=== PATIENT | male | born 1960 | race Caucasian/White ===

== ENCOUNTER 2016-10-03 17:29 | Emergency (ER) | payer OTHER ==
--- NOTE | 2016-10-04 03:20 | ED CLINICAL REPORT ---
Clinical Report - Physicians/Mid Levels [facility] [address] [place] [address] 10/03/2016 17:30 Patient: SAMARA SALAZAR Time Seen: 1735; initial patient contact, initial documentation, patient care assumed. Arrived- In custody. In handcuffs. Police present. Historian- patient. History limited by poor cooperation, vague historian and intoxication. Physical Exam limited by intoxication. HISTORY OF PRESENT ILLNESS Chief Complaint: AGITATED, ANGRY, HOMICIDAL THOUGHTS, VIOLENT BEHAVIOR and DELUSIONAL. This started today. The patient has experienced situational problems but not exhibited a behavior change and was not found wandering. (getting into arguments with neighbors, police called x3, third visit out, pt making threats to neighbor that he would hurt them and kill their dog, police brought pt in for psych eval and medical clearance/ H [place] The history I got was similar but not identical. He has a years long dispute about his neighbors barking dog. At one point there was a restraining order against Mr. Salazar. It has . Police say there are no charges against him. The police note states, "Deputies responded...due to Lucius yelling and threatening neighbors. Upon arrival, I was determined Lucius went into into his residence.... and continued to yell arriving deputies. Lucius made many statements about government conspiracies and stated to deputies that they would just have to "shoot me in the head" and "my heads about to burst" due to Lucius's history of yelling out and making threats towards neighbors I believe Lucius is a threat to himself and others due to his mental state. End of report [place] Topher number 06/13/02 when he was legally sober I asked him what he was going to do with his neighbor if he went home He told me that he would call his hand etcher helper make a civil complaint. He told me that he was not trying to hurt his neighbor nor his neighbor's dog. I have relayed this information to the the [facility] triage person. I requested CDMHP come and evaluate this patient.). Recent alcohol consumption. Has been angry and exhibited unusual behavior. No suicidal thoughts or self-injury inflicted. The symptoms are described as moderate. No injury is present. Similar symptoms previously: Recent medical care: Not recently seen/assessed. REVIEW OF SYSTEMS The patient has had a headache. No chest pain, abdominal pain, cough or difficulty breathing. per H [place]. All systems otherwise negative, except as recorded above. PAST HISTORY See nurses notes. ( PROBLEMS: Alcoholism. Schizoaffective Disorder. Per the nurse - Pt denies this to me. Neck Pain.). SOCIAL HISTORY Unknown if ever smoked. History of drug use unknown. No alcohol use. No social support. Has place to stay. FAMILY HISTORY Unknown family medical history. ADDITIONAL NOTES The nursing notes have been reviewed with agreement regarding the chief complaint, HPI, ROS, PMH and patient medications and allergies. PHYSICAL EXAM Vital Signs: 10/03/2016 17:44 BP: 140/88. HR: 98. RR: 22. O2 saturation: 95%. Temp: 98.7 F. Have been reviewed as normal and appear to be correct. Appearance: Alert. No acute distress. Is disheveled. Patient is uncooperative. Anxious. (strong etoh breath). Eyes: Pupils equal, round and reactive to light. Neck: Normal inspection. Neck supple. CVS: Normal heart rate and rhythm. Heart sounds normal. Respiratory: Breath sounds normal. Chest nontender. Abdomen: Soft and nontender. (L inguinal hernia). Back: No tenderness. Skin: Skin warm and dry. Normal skin color. Normal skin turgor. Extremities: Extremities exhibit normal ROM. No lower extremity edema. Psych / Neuro: Speech normal. Cognition not normal. Thought content not normal. Thought process not normal. Denies suicidal thoughts. He expresses homicidal thoughts. Insight and judgement not normal. He does not appear to understand his illness or feel treatment is necessary. He seems unconcerned about his current condition. Cranial nerves normal (as tested). No motor deficit. No sensory deficit. (agitated, combative, swearing, yelling). LABS, X-RAYS, AND EKG Laboratory Tests: UA-Culture if indicated: (SONALI: 10/03/2016 18:25) ( MsgRcvd 10/03/2016 18:43) Final results Test Result Flag Units (Reference) URINE COLOR YELLOW URINE APPEARANCE CLEAR URINE GLUCOSE NEGATIVE (NEGATIVE) URINE BILIRUBIN NEGATIVE (NEGATIVE) URINE KETONE NEGATIVE (NEGATIVE) URINE SPECIFIC GRAVITY 1.010 (1.010-1.030) URINE PH 5.5 (5.0-8.0) URINE PROTEIN TRACE (NEGATIVE) URINE UROBILINOGEN 0.2 EU/dL (0.2-1.0) URINE NITRITE NEGATIVE (NEGATIVE) URINE BLOOD 2+ (NEGATIVE) URINE LEUK ESTERASE NEGATIVE (NEGATIVE) URINE RBC 1-3 rbc/hpf (0-1) URINE WBC RARE wbc/hpf (0-1) URINE EPITHELIAL CELLS RARE EPI/hpf (0-5) URINE BACTERIA NONE SEEN (NONE SEEN) URINE COMMENT CULT NOT INDICATED URINE CULTURES ARE SET-UP BASED ON THE FOLLOWING CRITERIA:POSITIVE NITRITEPOSITIVE LEUKOCYTE ESTERASEGREATER THAN 10 WHITE BLOOD CELLSMODERATE (2+) OR GREATER BACTERIA CBC w Diff: (SONALI: 10/03/2016 18:00) ( [facility] 10/03/2016 18:07) Final results Test Result Flag Units (Reference) WHITE BLOOD COUNT 9.0 K/uL (4.5-11.5) RED BLOOD COUNT 4.47 L M/uL (4.50-5.90) HEMOGLOBIN 14.4 gm/dL (13.5-17.5) HEMATOCRIT 42.9 % (41.0-53.0) MEAN CELL VOLUME 96 fL (80-100) MEAN CORPUSCULAR HGB 32 pg (26-34) MEAN CORPUSCULAR HGB CONC 34 g/dL (31-37) RED CELL DISTRIBUTION WIDTH 14.0 % (11.6-14.8) PLATELET COUNT 291 K/uL (150-400) NEUTROPHIL % 61.3 % (50-75) LYMPH % 27.4 % (25-40) MONO % 10.0 % (3-14) EOSINOPHIL % 1.1 % (0-4) BASOPHIL % 0.2 % (0-2) Ethyl Alcohol: (SONALI: 10/03/2016 22:40) ( [facility] 10/03/2016 23:12) Final results Test Result Flag Units (Reference) ETHYL ALCOHOL 122 H mg/dL (3-10) Urine Drug Screen: (SONALI: 10/03/2016 18:25) ( [facility] 10/03/2016 18:48) Final results Test Result Flag Units (Reference) AMPHETAMINE/METHAMPHETAMINE NEGATIVE (NEGATIVE) BARBITURATE NEGATIVE (NEGATIVE) BENZODIAZEPINE NEGATIVE (NEGATIVE) CANNABINOID POSITIVE H (NEGATIVE) COCAINE NEGATIVE (NEGATIVE) ECSTASY NEGATIVE (NEGATIVE) METHADONE NEGATIVE (NEGATIVE) OPIATE NEGATIVE (NEGATIVE) The urine drug screen is a qualitative screening test fordrug overdose and abuse. All screen results should beconsidered as presumptive.Drugs screened for are as follows:BenzodiazepinesCocaineAmphetamines/MetamphetaminesTHC (Tetrahydrocannabinol)OpiatesBarbituratesEcstasyMethadonePositive results are unconfirmed. For confirmation, notifythe lab for the specimen to be sent to the reference lab.All confirmations must be performed by a differentmethodology.The ingestion of natural herbal and plant productscontaining Ephedra/Ephedra metabolites can produce in urineone or more substances capable of cross reacting withamphetamine/methamphetamine immunoassays. These testsprovide a preliminary result only. A more specificalternative chemical method must be used to obtain aconfirmed analytical result. Salicylate Level: (SONALI: 10/03/2016 18:00) ( [facility] 10/03/2016 18:50) Final results Test Result Flag Units (Reference) SALICYLATE 4.3 mg/dL (2.8-20) CMP: (SONALI: 10/03/2016 18:00) ( [facility] 10/03/2016 18:21) Final results Test Result Flag Units (Reference) GLUCOSE 95 mg/dL (70-110) BUN 11 mg/dL (7-18) CREATININE 0.9 mg/dL (0.6-1.3) Estimated GFR >60 mL/min Estimated GFR- >60 mL/min Note: Persistent reduction over 3 months in eGFR<60 mL/min/1.73 m2 defines CKD. Patients with eGFR values>=60 mL/min/1.73 m2 may also have CKD if evidence ofpersistent proteinuria. Additional information may be foundat www.kidney.org. SODIUM 148 H mmol/L (136-145) POTASSIUM 3.9 mmol/L (3.5-5.1) CHLORIDE 110 H mmol/L (98-107) CARBON DIOXIDE 25 mmol/L (21-32) CALCIUM 8.6 mg/dL (8.5-10.1) TOTAL PROTEIN 7.3 g/dL (6.4-8.2) ALBUMIN 3.8 g/dL (3.3-5.0) BILIRUBIN, TOTAL 0.2 mg/dL (0.0-1.0) ALKALINE PHOSPHATASE 64 U/L (46-116) AST (SGOT) 33 U/L (15-37) ALT (SGPT) 33 U/L (12-78) ACETAMINOPHEN < 10 L ug/mL (10-30) ETHYL ALCOHOL 221 H mg/dL (3-10) . PROGRESS AND PROCEDURES Course of Care: pt placed in 4 point restraints upon arrival after police cuffs removed 1814. at bedside with staff for urine sample, pt still being completely obnoxious, uncooperative, yelling, cussing, threatening staff 20:00 10/03/16. at bedside with pt and staff, pt was shaking bed and yelling and cussing, pt wants water and urinal, given both 21:37 10/03/16. report given to dr ro who will assume when care when I leave 21:42 10/03/16. Assumed care from Gil Henriquez [facility] due to change of shift. Independent history and physical exam. Moved restraints to new different position for comfort. /Alexx Ro MD 23:40 10/03/16. Refused to talk with me. Will need CDMHP. Second ETOH is 122. 01:15 10/04/16. Breathalyzer legal. Pt states he will call his hand etcher helper not harm his neighbor or the dog. He is angry and begins to escalate, then apologizes and calms down. He states that he was fired from [employer] [facility]. To Ashley Rodgers at [facility]. Via [facility] I request a CDMHP. I have spoken with Ashley personally, she states that she will send someone to evaluate Mr. Salazar. Police state he has no criminal charges against him. 01:53 10/04/16. [facility] wants to know it he would agree to a mental health hospitalization if it were recommended. He states hospitalization is not needed and he would decline it because someone would be trying to take his properties from him if he were hospitalized. 03:17 10/04/16. The CDP finds Mr. Salazar not to be of acute risk to himself or others and not having an acute mental health process. The police stated earlier that he is not charged with a crime. Differential Diagnosis: Other possible considerations: etoh, substance abuse, hi, bipolar, psychosis. Above considerations are based on history, physical exam, reassessment and laboratory data. Differential diagnosis was discussed with patient. CLINICAL IMPRESSION HISTORY OF AGGRESSIVE VERBAL BEHAVIOR TOWARD NEIGHBOR ALCOHOL INTOXICATION. INSTRUCTIONS (PLEASE DO NOT DRINK STAY AWAY FROM THE NEIGHBOR DO USE EARPHONES ESTABLISH PRIMARY CARE). Understanding of the discharge instructions verbalized by patient. Follow-up with: [facility], Family [facility], , [address] [place] [address] (Electronically signed by Tutu Ro MD 10/04/2016 22:22)
--- NOTE | 2016-10-04 03:20 | ED CLINICAL REPORT ---
Clinical Report - Physicians/Mid Levels [facility] [address] [place] [address] 10/03/2016 17:30 Patient: SAMARA SALAZAR Time Seen: 1735; initial patient contact, initial documentation, patient care assumed. Arrived- In custody. In handcuffs. Police present. Historian- patient. History limited by poor cooperation, vague historian and intoxication. Physical Exam limited by intoxication. HISTORY OF PRESENT ILLNESS Chief Complaint: AGITATED, ANGRY, HOMICIDAL THOUGHTS, VIOLENT BEHAVIOR and DELUSIONAL. This started today. The patient has experienced situational problems but not exhibited a behavior change and was not found wandering. (getting into arguments with neighbors, police called x3, third visit out, pt making threats to neighbor that he would hurt them and kill their dog, police brought pt in for psych eval and medical clearance/ H [place] The history I got was similar but not identical. He has a years long dispute about his neighbors barking dog. At one point there was a restraining order against Mr. Salazar. It has . Police say there are no charges against him. The police note states, "Deputies responded...due to Lucius yelling and threatening neighbors. Upon arrival, I was determined Lucius went into into his residence.... and continued to yell arriving deputies. Lucius made many statements about government conspiracies and stated to deputies that they would just have to "shoot me in the head" and "my heads about to burst" due to Lucius's history of yelling out and making threats towards neighbors I believe Lucius is a threat to himself and others due to his mental state. End of report [place] Topher number 06/13/02 when he was legally sober I asked him what he was going to do with his neighbor if he went home He told me that he would call his customer care manager make a civil complaint. He told me that he was not trying to hurt his neighbor nor his neighbor's dog. I have relayed this information to the the [facility] triage person. I requested CDMHP come and evaluate this patient.). Recent alcohol consumption. Has been angry and exhibited unusual behavior. No suicidal thoughts or self-injury inflicted. The symptoms are described as moderate. No injury is present. Similar symptoms previously: Recent medical care: Not recently seen/assessed. REVIEW OF SYSTEMS The patient has had a headache. No chest pain, abdominal pain, cough or difficulty breathing. per H [place]. All systems otherwise negative, except as recorded above. PAST HISTORY See nurses notes. ( PROBLEMS: Alcoholism. Schizoaffective Disorder. Per the nurse - Pt denies this to me. Neck Pain.). SOCIAL HISTORY Unknown if ever smoked. History of drug use unknown. No alcohol use. No social support. Has place to stay. FAMILY HISTORY Unknown family medical history. ADDITIONAL NOTES The nursing notes have been reviewed with agreement regarding the chief complaint, HPI, ROS, PMH and patient medications and allergies. PHYSICAL EXAM Vital Signs: 10/03/2016 17:44 BP: 140/88. HR: 98. RR: 22. O2 saturation: 95%. Temp: 98.7 F. Have been reviewed as normal and appear to be correct. Appearance: Alert. No acute distress. Is disheveled. Patient is uncooperative. Anxious. (strong etoh breath). Eyes: Pupils equal, round and reactive to light. Neck: Normal inspection. Neck supple. CVS: Normal heart rate and rhythm. Heart sounds normal. Respiratory: Breath sounds normal. Chest nontender. Abdomen: Soft and nontender. (L inguinal hernia). Back: No tenderness. Skin: Skin warm and dry. Normal skin color. Normal skin turgor. Extremities: Extremities exhibit normal ROM. No lower extremity edema. Psych / Neuro: Speech normal. Cognition not normal. Thought content not normal. Thought process not normal. Denies suicidal thoughts. He expresses homicidal thoughts. Insight and judgement not normal. He does not appear to understand his illness or feel treatment is necessary. He seems unconcerned about his current condition. Cranial nerves normal (as tested). No motor deficit. No sensory deficit. (agitated, combative, swearing, yelling). LABS, X-RAYS, AND EKG Laboratory Tests: UA-Culture if indicated: (SONALI: 10/03/2016 18:25) ( MsgRcvd 10/03/2016 18:43) Final results Test Result Flag Units (Reference) URINE COLOR YELLOW URINE APPEARANCE CLEAR URINE GLUCOSE NEGATIVE (NEGATIVE) URINE BILIRUBIN NEGATIVE (NEGATIVE) URINE KETONE NEGATIVE (NEGATIVE) URINE SPECIFIC GRAVITY 1.010 (1.010-1.030) URINE PH 5.5 (5.0-8.0) URINE PROTEIN TRACE (NEGATIVE) URINE UROBILINOGEN 0.2 EU/dL (0.2-1.0) URINE NITRITE NEGATIVE (NEGATIVE) URINE BLOOD 2+ (NEGATIVE) URINE LEUK ESTERASE NEGATIVE (NEGATIVE) URINE RBC 1-3 rbc/hpf (0-1) URINE WBC RARE wbc/hpf (0-1) URINE EPITHELIAL CELLS RARE EPI/hpf (0-5) URINE BACTERIA NONE SEEN (NONE SEEN) URINE COMMENT CULT NOT INDICATED URINE CULTURES ARE SET-UP BASED ON THE FOLLOWING CRITERIA:POSITIVE NITRITEPOSITIVE LEUKOCYTE ESTERASEGREATER THAN 10 WHITE BLOOD CELLSMODERATE (2+) OR GREATER BACTERIA CBC w Diff: (SONALI: 10/03/2016 18:00) ( [facility] 10/03/2016 18:07) Final results Test Result Flag Units (Reference) WHITE BLOOD COUNT 9.0 K/uL (4.5-11.5) RED BLOOD COUNT 4.47 L M/uL (4.50-5.90) HEMOGLOBIN 14.4 gm/dL (13.5-17.5) HEMATOCRIT 42.9 % (41.0-53.0) MEAN CELL VOLUME 96 fL (80-100) MEAN CORPUSCULAR HGB 32 pg (26-34) MEAN CORPUSCULAR HGB CONC 34 g/dL (31-37) RED CELL DISTRIBUTION WIDTH 14.0 % (11.6-14.8) PLATELET COUNT 291 K/uL (150-400) NEUTROPHIL % 61.3 % (50-75) LYMPH % 27.4 % (25-40) MONO % 10.0 % (3-14) EOSINOPHIL % 1.1 % (0-4) BASOPHIL % 0.2 % (0-2) Ethyl Alcohol: (SONALI: 10/03/2016 22:40) ( [facility] 10/03/2016 23:12) Final results Test Result Flag Units (Reference) ETHYL ALCOHOL 122 H mg/dL (3-10) Urine Drug Screen: (SONALI: 10/03/2016 18:25) ( [facility] 10/03/2016 18:48) Final results Test Result Flag Units (Reference) AMPHETAMINE/METHAMPHETAMINE NEGATIVE (NEGATIVE) BARBITURATE NEGATIVE (NEGATIVE) BENZODIAZEPINE NEGATIVE (NEGATIVE) CANNABINOID POSITIVE H (NEGATIVE) COCAINE NEGATIVE (NEGATIVE) ECSTASY NEGATIVE (NEGATIVE) METHADONE NEGATIVE (NEGATIVE) OPIATE NEGATIVE (NEGATIVE) The urine drug screen is a qualitative screening test fordrug overdose and abuse. All screen results should beconsidered as presumptive.Drugs screened for are as follows:BenzodiazepinesCocaineAmphetamines/MetamphetaminesTHC (Tetrahydrocannabinol)OpiatesBarbituratesEcstasyMethadonePositive results are unconfirmed. For confirmation, notifythe lab for the specimen to be sent to the reference lab.All confirmations must be performed by a differentmethodology.The ingestion of natural herbal and plant productscontaining Ephedra/Ephedra metabolites can produce in urineone or more substances capable of cross reacting withamphetamine/methamphetamine immunoassays. These testsprovide a preliminary result only. A more specificalternative chemical method must be used to obtain aconfirmed analytical result. Salicylate Level: (SONALI: 10/03/2016 18:00) ( [facility] 10/03/2016 18:50) Final results Test Result Flag Units (Reference) SALICYLATE 4.3 mg/dL (2.8-20) CMP: (SONALI: 10/03/2016 18:00) ( [facility] 10/03/2016 18:21) Final results Test Result Flag Units (Reference) GLUCOSE 95 mg/dL (70-110) BUN 11 mg/dL (7-18) CREATININE 0.9 mg/dL (0.6-1.3) Estimated GFR >60 mL/min Estimated GFR- >60 mL/min Note: Persistent reduction over 3 months in eGFR<60 mL/min/1.73 m2 defines CKD. Patients with eGFR values>=60 mL/min/1.73 m2 may also have CKD if evidence ofpersistent proteinuria. Additional information may be foundat www.kidney.org. SODIUM 148 H mmol/L (136-145) POTASSIUM 3.9 mmol/L (3.5-5.1) CHLORIDE 110 H mmol/L (98-107) CARBON DIOXIDE 25 mmol/L (21-32) CALCIUM 8.6 mg/dL (8.5-10.1) TOTAL PROTEIN 7.3 g/dL (6.4-8.2) ALBUMIN 3.8 g/dL (3.3-5.0) BILIRUBIN, TOTAL 0.2 mg/dL (0.0-1.0) ALKALINE PHOSPHATASE 64 U/L (46-116) AST (SGOT) 33 U/L (15-37) ALT (SGPT) 33 U/L (12-78) ACETAMINOPHEN < 10 L ug/mL (10-30) ETHYL ALCOHOL 221 H mg/dL (3-10) . PROGRESS AND PROCEDURES Course of Care: pt placed in 4 point restraints upon arrival after police cuffs removed 1814. at bedside with staff for urine sample, pt still being completely obnoxious, uncooperative, yelling, cussing, threatening staff 20:00 10/03/16. at bedside with pt and staff, pt was shaking bed and yelling and cussing, pt wants water and urinal, given both 21:37 10/03/16. report given to dr ro who will assume when care when I leave 21:42 10/03/16. Assumed care from Gil Henriquez [facility] due to change of shift. Independent history and physical exam. Moved restraints to new different position for comfort. /Alexx Ro MD 23:40 10/03/16. Refused to talk with me. Will need CDMHP. Second ETOH is 122. 01:15 10/04/16. Breathalyzer legal. Pt states he will call his customer care manager not harm his neighbor or the dog. He is angry and begins to escalate, then apologizes and calms down. He states that he was fired from [employer]. To Ashley Rodgers at [facility]. Via [facility] I request a CDMHP. I have spoken with Ashley personally, she states that she will send someone to evaluate Mr. Salazar. Police state he has no criminal charges against him. 01:53 10/04/16. [facility] wants to know it he would agree to a mental health hospitalization if it were recommended. He states hospitalization is not needed and he would decline it because someone would be trying to take his properties from him if he were hospitalized. 03:17 10/04/16. The CDP finds Mr. Salazar not to be of acute risk to himself or others and not having an acute mental health process. The police stated earlier that he is not charged with a crime. Differential Diagnosis: Other possible considerations: etoh, substance abuse, hi, bipolar, psychosis. Above considerations are based on history, physical exam, reassessment and laboratory data. Differential diagnosis was discussed with patient. CLINICAL IMPRESSION HISTORY OF AGGRESSIVE VERBAL BEHAVIOR TOWARD NEIGHBOR ALCOHOL INTOXICATION. INSTRUCTIONS (PLEASE DO NOT DRINK STAY AWAY FROM THE NEIGHBOR DO USE EARPHONES ESTABLISH PRIMARY CARE). Understanding of the discharge instructions verbalized by patient. Follow-up with: [facility], Family [facility], , [address] [place] [address] (Electronically signed by Tutu Ro MD 10/04/2016 22:22)
--- NOTE | 2016-10-04 03:20 | ED NURSING NOTES ---
Clinical Report - Nurses [facility] [place] [address] 10/03/2016 17:30 Patient: SAMARA SALAZAR TRIAGE Triage time 1725. Acuity: LEVEL 2. Chief Complaint: ANXIETY and AGITATED, AGGRESSIVE BEHAVIOR, VIOLENT BEHAVIOR and HOMICIDAL THOUGHTS. PEGGY COMA SCORE: [place] Coma Scale: 14- eyes open spontaneously (4); best verbal response- disoriented (4); best motor response- obeys commands (6). --18:05 Shekhar Almeida R.N. 17:44 10/03/16. BP: 140/88. HR: 98. RR: 22. O2 saturation: 95%. Temp: 98.7 F. Pain level now 10/10. --18:05 Shekhar Almeida R.N. Weight: 83.9 kg. Height/Length: 73 inches. BMI: 24.4. --17:46 Shekhar Almeida R.N. Medications None. --17:47 Shekhar Almeida R.N. Allergies No Known Drug Allergy. --17:48 Shekhar Almeida R.N. History Arrived by EMS, and in police custody. Historian: patient. Accompanied by police. ( Pt was brought in by [facility] and EMS. Pt does have an invol form that was written by police.). Onset: just prior to arrival. He has had anxiety. Has been feeling agitated. ( Pt was brought in by police and EMS. Police was called to his house 3 times today. Pt was making verbal threats to his neighbors and was violent with police. Pt has been drinking all day and smells of alcohol. Police have a hx with the pt. Neighbors had a restraining order that recently . Pt came in screaming and threatening staff and police. Pt stated the police broke his neck, ripped his arms off and he was bleeding from his gut, but he is not.). 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 EMS report reviewed. See report. PAST MEDICAL HX: Anxiety. Psychiatric illness. ( Pt refuses to answer questions about his med or med hx. Pt stated he has a broken back neck and his guts are falling out.). SOCIAL HX: Alcohol use. --18:05 Shekhar Almeida R.N. PROBLEMS: Alcoholism. Schizoaffective Disorder. Neck Pain. --17:49 Shekhar Almeida R.N. Interventions ID band on patient. To treatment room. --18:05 Shekhar Almeida R.N. PHYSICAL ASSESSMENT GENERAL / NEURO / PSYCH: Alert. Appears anxious. He appears anxious and agitated, has poor eye contact and no smile response and smells of alcohol. He is hostile and combative and appears unkempt. The patient is disoriented to time. Speech within normal limits. Patient is verbally threatening. Patient smells of alcohol. RESPIRATORY: Respirations not labored. Breath sounds within normal limits. CVS: Normal heart rate and rhythm. Capillary refill less than 2 seconds. GI / : Abdomen soft and nontender. Bowel sounds within normal limits. SKIN: Skin intact. Skin is warm and dry. Skin color is within normal limits. --18:06 Shekhar Almeida R.N. NURSING PROGRESS NOTES ( pt has been placed in a gown with a warm blanket. Clothing has been removed.). --18:07 Shekhar Almeida R.N. 18 fr in/out catheterization. During procedure hand hygiene observed and sterile equipment and aseptic technique used. Return of 300 mL talia-colored urine. He tolerated procedure fair. --18:27 Shekhar Almeida R.N. ( Pt is still very agitated and verbally aggressive. He told me, "When I get out, I will beat the fuck out of you."). --18:27 Shekhar Almeida R.N. ( The left arm was moved from the top of the bed to the side of the left body. Pt stated his neck was broken and the left arm was hurting him. Restraint was replaced and checked.). --18:49 Shekhar Almeida R.N. Care transferred and report received (From Shekhar RN, assumed care of pt). --21:52 Sarika Wright R.N. ( left arm released and repositioned, pt verbally aggressive, calling one of the RNs a "whore". pt given a ice pack for back and neck, for pain control. pt A&Ox4, CONSTRUCTION RIGGER intact, NAD,). --22:21 Sarika Wright R.N. Patient ID band checked for patient name and birthdate: patient confirmed. Blood samples drawn from the left forearm by tech per protocol ; labeled in presence of the patient and sent to lab: red and green top. --22:41 Franky Ng, ER Armoring Machine Operator ( BREATHALYZER .[id number]). --01:09 Franky Ng, ER Armoring Machine Operator Reassessment after fluids administered. Overall patient status is improved. ( pt resting, NAD, still easily agitated however easily redirected pt remains with door locked for safety. will continue to monitor. pt given water). GENERAL / NEURO / PSYCH: The patient reports anger is still present but improving and currently moderate in severity (comes and goes however improving). Alert. Oriented X 4. Patient appears agitated: hyperactive body language. --02:01 Sarika Wright R.N. Overall patient status is improved. ( pt A&Ox4, agitated easily but redirected. VSS, NAD pt offered food but refused, pt accepted water. pt speaking to the [facility] worker at this time.). GENERAL / NEURO / PSYCH: Alert. Oriented X 4. Patient appears agitated. RESPIRATORY: No respiratory distress. SKIN: Skin is warm and dry. Skin color within normal limits. --02:55 Sarika Wright R.N. 02:51 10/04/16. BP: 138/82 (regular adult cuff) taken on the right arm, while lying. HR: 84 (regular and normal rate). RR: 18 (regular and unlabored). O2 saturation: 95% on room air. Temp: deferred. Pain level now: 11/15. --02:55 Sarika Wright R.N. ( pt resting, NAD, restraints fully released at 0300. pt given warm blankets and slipper socks, will continue to monitor till pt able to obtain ride home.). GENERAL / NEURO / PSYCH: Alert. Oriented X 4. Patient appears calm and cooperative. Affect appears normal. RESPIRATORY: No respiratory distress. SKIN: Skin is warm and dry. Skin color within normal limits. --03:32 Sarika Wright R.N. The patient is calm and sleeping. Overall patient status is improved. ( Sleeping soundly, no distress noted, RR even and unlabored, will continue to monitor). Side rails up. --05:19 Sarika Wright R.N. DISPOSITION / DISCHARGE No learning barriers present. Discharge instructions provided and reviewed with the patient. Patient verbalized understanding. Written instructions provided in [place]an. The patient was discharged home. He left the Emergency Department ambulatory. --05:58 Sarika Wright R.N. 05:56 10/04/16. BP: 131/82 taken on the left arm, while lying. HR: 74 (regular and normal rate). RR: 18 (regular). O2 saturation: 100% on room air. Temp: deferred. Pain level now: 08/15. --05:58 Sarika Wright R.N. Departure time: 0328. --06:03 Sarika Wright R.N. Locked/Released at 10/04/2016 6:03 by Sarika Wright R.N.
--- NOTE | 2016-10-04 03:20 | ED NURSING NOTES ---
Clinical Report - Nurses [facility] [place] [address] 10/03/2016 17:30 Patient: SAMARA SALAZAR TRIAGE Triage time 1725. Acuity: LEVEL 2. Chief Complaint: ANXIETY and AGITATED, AGGRESSIVE BEHAVIOR, VIOLENT BEHAVIOR and HOMICIDAL THOUGHTS. PEGGY COMA SCORE: [place] Coma Scale: 14- eyes open spontaneously (4); best verbal response- disoriented (4); best motor response- obeys commands (6). --18:05 Shekhar Almeida R.N. 17:44 10/03/16. BP: 140/88. HR: 98. RR: 22. O2 saturation: 95%. Temp: 98.7 F. Pain level now 10/10. --18:05 Shekhar Almeida R.N. Weight: 83.9 kg. Height/Length: 73 inches. BMI: 24.4. --17:46 Shekhar Almeida R.N. Medications None. --17:47 Shekhar Almeida R.N. Allergies No Known Drug Allergy. --17:48 Shekhar Almeida R.N. History Arrived by EMS, and in police custody. Historian: patient. Accompanied by police. ( Pt was brought in by [facility] and EMS. Pt does have an invol form that was written by police.). Onset: just prior to arrival. He has had anxiety. Has been feeling agitated. ( Pt was brought in by police and EMS. Police was called to his house 3 times today. Pt was making verbal threats to his neighbors and was violent with police. Pt has been drinking all day and smells of alcohol. Police have a hx with the pt. Neighbors had a restraining order that recently . Pt came in screaming and threatening staff and police. Pt stated the police broke his neck, ripped his arms off and he was bleeding from his gut, but he is not.). 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 EMS report reviewed. See report. PAST MEDICAL HX: Anxiety. Psychiatric illness. ( Pt refuses to answer questions about his med or med hx. Pt stated he has a broken back neck and his guts are falling out.). SOCIAL HX: Alcohol use. --18:05 Shekhar Almeida R.N. PROBLEMS: Alcoholism. Schizoaffective Disorder. Neck Pain. --17:49 Shekhar Almeida R.N. Interventions ID band on patient. To treatment room. --18:05 Shekhar Almeida R.N. PHYSICAL ASSESSMENT GENERAL / NEURO / PSYCH: Alert. Appears anxious. He appears anxious and agitated, has poor eye contact and no smile response and smells of alcohol. He is hostile and combative and appears unkempt. The patient is disoriented to time. Speech within normal limits. Patient is verbally threatening. Patient smells of alcohol. RESPIRATORY: Respirations not labored. Breath sounds within normal limits. CVS: Normal heart rate and rhythm. Capillary refill less than 2 seconds. GI / : Abdomen soft and nontender. Bowel sounds within normal limits. SKIN: Skin intact. Skin is warm and dry. Skin color is within normal limits. --18:06 Shekhar Almeida R.N. NURSING PROGRESS NOTES ( pt has been placed in a gown with a warm blanket. Clothing has been removed.). --18:07 Shekhar Almeida R.N. 18 fr in/out catheterization. During procedure hand hygiene observed and sterile equipment and aseptic technique used. Return of 300 mL talia-colored urine. He tolerated procedure fair. --18:27 Shekhar Almeida R.N. ( Pt is still very agitated and verbally aggressive. He told me, "When I get out, I will beat the fuck out of you."). --18:27 Shekhar Almeida R.N. ( The left arm was moved from the top of the bed to the side of the left body. Pt stated his neck was broken and the left arm was hurting him. Restraint was replaced and checked.). --18:49 Shekhar Almeida R.N. Care transferred and report received (From Shekhar RN, assumed care of pt). --21:52 Sarika Wright R.N. ( left arm released and repositioned, pt verbally aggressive, calling one of the RNs a "whore". pt given a ice pack for back and neck, for pain control. pt A&Ox4, CHEMICAL RECLAMATION EQUIPMENT OPERATOR intact, NAD,). --22:21 Sarika rWight R.N. Patient ID band checked for patient name and birthdate: patient confirmed. Blood samples drawn from the left forearm by tech per protocol ; labeled in presence of the patient and sent to lab: red and green top. --22:41 Franky Ng, ER Service Desk Agent ( BREATHALYZER .[id number]). --01:09 Franky Ng, ER Service Desk Agent Reassessment after fluids administered. Overall patient status is improved. ( pt resting, NAD, still easily agitated however easily redirected pt remains with door locked for safety. will continue to monitor. pt given water). GENERAL / NEURO / PSYCH: The patient reports anger is still present but improving and currently moderate in severity (comes and goes however improving). Alert. Oriented X 4. Patient appears agitated: hyperactive body language. --02:01 Sarika Wright R.N. Overall patient status is improved. ( pt A&Ox4, agitated easily but redirected. VSS, NAD pt offered food but refused, pt accepted water. pt speaking to the [facility] worker at this time.). GENERAL / NEURO / PSYCH: Alert. Oriented X 4. Patient appears agitated. RESPIRATORY: No respiratory distress. SKIN: Skin is warm and dry. Skin color within normal limits. --02:55 Sarika Wright R.N. 02:51 10/04/16. BP: 138/82 (regular adult cuff) taken on the right arm, while lying. HR: 84 (regular and normal rate). RR: 18 (regular and unlabored). O2 saturation: 95% on room air. Temp: deferred. Pain level now: 11/15. --02:55 Sarika Wright R.N. ( pt resting, NAD, restraints fully released at 0300. pt given warm blankets and slipper socks, will continue to monitor till pt able to obtain ride home.). GENERAL / NEURO / PSYCH: Alert. Oriented X 4. Patient appears calm and cooperative. Affect appears normal. RESPIRATORY: No respiratory distress. SKIN: Skin is warm and dry. Skin color within normal limits. --03:32 Sarika Wright R.N. The patient is calm and sleeping. Overall patient status is improved. ( Sleeping soundly, no distress noted, RR even and unlabored, will continue to monitor). Side rails up. --05:19 Sarika Wright R.N. DISPOSITION / DISCHARGE No learning barriers present. Discharge instructions provided and reviewed with the patient. Patient verbalized understanding. Written instructions provided in [place]. The patient was discharged home. He left the Emergency Department ambulatory. --05:58 Sarika Wright R.N. 05:56 10/04/16. BP: 131/82 taken on the left arm, while lying. HR: 74 (regular and normal rate). RR: 18 (regular). O2 saturation: 100% on room air. Temp: deferred. Pain level now: 08/15. --05:58 Sarika Wright R.N. Departure time: 0328. --06:03 Sarika Wright R.N. Locked/Released at 10/04/2016 6:03 by Sarika Wright R.N.
--- NOTE | 2016-10-04 03:20 | ED ORDER SUMMARY ---
..... Patient: SAMARA SALAZAR OrderSheet [facility] VisitID: [id number] [place] [address] 55y, M Registration Date/Time: 10/03/2016 ORDER SHEET Weight: 83.9 kg Allergies: No Known Drug Allergy GENERAL ORDERS: CBC w Diff Urgent (17:44 10/03/2016 HBivens A.R.N.P.) (Ack 17:46 IJurca ER Tech1) (19:16 CHagerty ER Culinary Internship) CMP Urgent (17:44 10/03/2016 HBivens A.R.N.P.) (Ack 17:46 IJurca ER Tech1) (19:16 CHagerty ER Culinary Internship) UA-Culture if indicated Urgent (17:44 10/03/2016 HBivens A.R.N.P.) (Ack 17:46 IJurca ER Tech1) (19:16 CHagerty ER Culinary Internship) Urine Drug Screen Urgent (17:44 10/03/2016 HBivens A.R.N.P.) (Ack 17:46 IJurca ER Tech1) (19:16 CHagerty ER Culinary Internship) Ethyl Alcohol Urgent (17:44 10/03/2016 HBivens A.R.N.P.) (Ack 17:46 IJurca ER Tech1) (19:16 CHagerty ER Culinary Internship) Acetaminophen Level Urgent (17:44 10/03/2016 HBivens A.R.N.P.) (Ack 17:46 IJurca ER Tech1) (19:16 CHagerty ER Culinary Internship) Salicylate Level Urgent (17:44 10/03/2016 HBivens A.R.N.P.) (Ack 17:46 IJurca ER Tech1) (19:16 CHagerty ER Culinary Internship) Ethyl Alcohol Urgent (21:37 10/03/2016 HBivens A.R.N.P.) (Ack 21:46 CHagerty ER Culinary Internship) (22:40 CHagerty ER Culinary Internship) MEDICATION ORDERS: IV FLUIDS: ORDER SHEET NOTES: [Electronically signed by Sarika Wright R.N. (06:03 10/04/2016)] [Electronically signed by Tutu Chanel MD (22:22 10/04/2016)] [Electronically locked/signed by Sarika Wright R.N. (06:03 10/04/2016)]
--- NOTE | 2016-10-04 03:20 | ED ORDER SUMMARY ---
..... Patient: SAMARA SALAZAR OrderSheet [facility] VisitID: [id number] [place] [address] 55y, M Registration Date/Time: 10/03/2016 ORDER SHEET Weight: 83.9 kg Allergies: No Known Drug Allergy GENERAL ORDERS: CBC w Diff Urgent (17:44 10/03/2016 HBivens A.R.N.P.) (Ack 17:46 IJurca ER Tech1) (19:16 CHagerty ER Manager Music) CMP Urgent (17:44 10/03/2016 HBivens A.R.N.P.) (Ack 17:46 IJurca ER Tech1) (19:16 CHagerty ER Manager Music) UA-Culture if indicated Urgent (17:44 10/03/2016 HBivens A.R.N.P.) (Ack 17:46 IJurca ER Tech1) (19:16 CHagerty ER Manager Music) Urine Drug Screen Urgent (17:44 10/03/2016 HBivens A.R.N.P.) (Ack 17:46 IJurca ER Tech1) (19:16 CHagerty ER Manager Music) Ethyl Alcohol Urgent (17:44 10/03/2016 HBivens A.R.N.P.) (Ack 17:46 IJurca ER Tech1) (19:16 CHagerty ER Manager Music) Acetaminophen Level Urgent (17:44 10/03/2016 HBivens A.R.N.P.) (Ack 17:46 IJurca ER Tech1) (19:16 CHagerty ER Manager Music) Salicylate Level Urgent (17:44 10/03/2016 HBivens A.R.N.P.) (Ack 17:46 IJurca ER Tech1) (19:16 CHagerty ER Manager Music) Ethyl Alcohol Urgent (21:37 10/03/2016 HBivens A.R.N.P.) (Ack 21:46 CHagerty ER Manager Music) (22:40 CHagerty ER Manager Music) MEDICATION ORDERS: IV FLUIDS: ORDER SHEET NOTES: [Electronically signed by Sarika Wright R.N. (06:03 10/04/2016)] [Electronically signed by Tutu Chanel MD (22:22 10/04/2016)] [Electronically locked/signed by Sarika Wright R.N. (06:03 10/04/2016)]
--- NOTE | 2016-10-04 22:23 | ED MAR SUMMARY ---
..... Medication Administration Record [facility] [address] [place], [place] [id number] Patient: SAMARA SALAZAR Visit ID: [id number] 55y, M Weight: 83.9 kg Height/Length: 73 in BMI: 24.4 ALLERGIES: No Known Drug Allergy
--- NOTE | 2016-10-04 22:23 | ED DISCHARGE INSTRUCTIONS ---
Patient: SAMARA SALAZAR General Instructions [facility] VisitID: [id number] [address] [place] [place] [address] 55y, M Registration Date/Time: 10/03/2016 HISTORY OF AGGRESSIVE VERBAL BEHAVIOR TOWARD NEIGHBOR ALCOHOL INTOXICATION. INSTRUCTIONS (PLEASE DO NOT DRINK STAY AWAY FROM THE NEIGHBOR DO USE EARPHONES ESTABLISH PRIMARY CARE). Understanding of the discharge instructions verbalized by patient. Follow-up with: [facility], [facility], , [address] [place] [address] (Electronically signed by Tutu Chanel MD 10/04/2016 22:22)
--- NOTE | 2016-10-04 22:23 | ED DISCHARGE INSTRUCTIONS ---
Patient: SAMARA SALAZAR General Instructions [facility] VisitID: [id number] [address] [place] [address] 55y, M Registration Date/Time: 10/03/2016 HISTORY OF AGGRESSIVE VERBAL BEHAVIOR TOWARD NEIGHBOR ALCOHOL INTOXICATION. INSTRUCTIONS (PLEASE DO NOT DRINK STAY AWAY FROM THE NEIGHBOR DO USE EARPHONES ESTABLISH PRIMARY CARE). Understanding of the discharge instructions verbalized by patient. Follow-up with: [facility], [facility], , [address] [place] [address] (Electronically signed by Tutu Chanel MD 10/04/2016 22:22)
--- NOTE | 2016-10-04 22:23 | ED MED RECONCILIATION SUMMARY ---
Patient: SAMARA SALAZAR Medication Reconciliation Report [facility] VisitID: [id number] [address] [place] [address] 55y, M Registration Date/Time: 10/03/2016 Weight: 83.9 kg Height/Length: 73 in. BMI: 24.4 ALLERGIES: No Known Drug Allergy The patient's Home Medications are listed below: NONE. The source(s) of the original Home Medication information: Not obtained. The following Medications were given to the patient in the Emergency Department: None. The following Medications were prescribed to the patient: None.
--- NOTE | 2016-10-04 22:23 | ED MED RECONCILIATION SUMMARY ---
Patient: SAMARA SALAZAR Medication Reconciliation Report [facility] VisitID: [id number] [address] [place] [address] 55y, M Registration Date/Time: 10/03/2016 Weight: 83.9 kg Height/Length: 73 in. BMI: 24.4 ALLERGIES: No Known Drug Allergy The patient's Home Medications are listed below: NONE. The source(s) of the original Home Medication information: Not obtained. The following Medications were given to the patient in the Emergency Department: None. The following Medications were prescribed to the patient: None.
--- NOTE | 2016-10-04 22:23 | ED MAR SUMMARY ---
..... Medication Administration Record [facility] [address] [place], [place] [id number] Patient: SAMARA SALAZAR Visit ID: [id number] 55y, M Weight: 83.9 kg Height/Length: 73 in BMI: 24.4 ALLERGIES: No Known Drug Allergy
== END 2016-10-04 03:28 | disposition home or self-care (01) ==
LOC: ED SRH 17:29
DX: F10.129 Alcohol abuse with intoxication, unspecified (principal); R46.89 Other symptoms and signs involving appearance and behavior
CPT/HCPCS: 90004; 90074; 90100; 92010; 92760; 92761; 92762; 92763; 92764; 92765; 92766; 92767; 92780; 95059; 97000

== ENCOUNTER 2016-10-12 12:51 | Emergency (ER) | payer OTHER ==
--- NOTE | 2016-10-12 15:06 | ED CLINICAL REPORT ---
Clinical Report - Physicians/Mid Levels [facility] [address] [place] [address] 10/12/2016 12:51 Patient: SAMARA SALAZAR Time Seen: 1300. Arrived- By private vehicle. Historian- patient. HISTORY OF PRESENT ILLNESS Location of injuries- face. Chief Complaint: DOG BITE. The injury occurred just prior to arrival. The animal reportedly appeared well and is up to date on immunizations. Occurred at home. This was an "unprovoked" attack. No skin rash or difficulty breathing. 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 REVIEW OF SYSTEMS No headache, difficulty breathing, weakness, chest pain or fever. No abdominal pain. no other areas of injury or pain. All systems otherwise negative, except as recorded above. PAST HISTORY See nurses notes. Tetanus immunization status is up-to-date. Medications: None. Allergies: NKDA. SOCIAL HISTORY Smoker- current status unknown. Alcohol use. No drug use. No recent travel. Is a local resident. ADDITIONAL NOTES The nursing notes have been reviewed. PHYSICAL EXAM Vital Signs: 10/12/2016 12:55 BP: 140/94. HR: 86. RR: 20. O2 saturation: 97%. Temp: 97.4 F. Pain level now: 10/10. Oxygen saturation normal. Appearance: Alert. Oriented X3. Patient in mild distress. (non-toxic. swearing. rude. degrading towards staff. yelling out loud stating that he does not want to be here.). Head: Head normal on inspection and non-tender. No Salazar's sign or raccoon eyes. (Large laceration from the right upper lip to the inferior cheek with several flaps. Through and through. No FB. Bleeding controlled with pressure.). Eyes: Pupillary exam: Right pupil 4mm, round and reactive to light directly and consensually and with accommodation. Left pupil: 4mm, round and reactive to light directly and consensually and with accommodation. Eyes normal inspection. No ocular injury. ENT: Ears normal on inspection. Nose normal on inspection. Mouth normal on inspection. No hemotympanum. No malocclusion. Neck: Normal inspection. No decreased ROM or muscle spasm in the neck. No pain with movement of head/neck. Neck non-tender. Painless ROM. No vertebral tenderness. CVS: Heart sounds normal. Pulses normal. Respiratory: Chest normal on inspection. Breath sounds normal. Chest nontender. Abdomen: Normal inspection. Soft and nontender. Bowel sounds normal. Back: Normal inspection. No tenderness. ROM normal. Skin: Skin intact. Skin warm and dry. Normal skin color. Normal skin turgor. Extremities: Normal inspection. Pelvis stable. Extremities atraumatic. No lower extremity edema. Neuro: Magnus Coma Scale: 15- eyes open spontaneously (4); best verbal response- oriented x 3 (5); best motor response- obeys commands (6). Oriented X 3. No motor deficit. No sensory deficit. PROGRESS AND PROCEDURES Course of Care: the patient is a 55-year-old male presenting for evaluation of dog bite to the face. Patient is being abusive verbally to staff. Patient is swearing and cussing at staff members. Patient states that he does not want to be here. Patient however was encouraged by nursing staff and myself to stay and get medical treatment for the severe lacerations to the face. After initial evaluation of the patient, I had ordered pain medication and consult with your nose and throat doctor per the patient's request of wanting someone else other than myself to sew the wound because of the location and cosmetic sensitivity issues. Informed the patient about the ear nose and throat doctor needing to attend to other duties at another health care facility and will be able to treat the patient once this is been completed. Estimated weight time was approximately an hour and a half. When the patient was updated and told that he was going to get pain medication, patient said Sarcastically, "thank you for the pain medication oh by the way, fuck you." unclear why patient is being verbally abusive to staff. We have been professional and curious with the patient throughout his stay. I am particularly upset with the way patient has been treating our staff. Patient has been disrupting other patient care while here in the emergency department as well which is similarly upsetting. A patient came out of his room and told the patient to be quiet. Security called. Patient is accompanied by an acquaintance who is also encouraging patient to stay however does realize the patient's uncooperative behavior. Patient is intoxicated however is able to make medical decisions for himself. Do not feel I can force the patient to stay against his will. patient was able to have his wound irrigated and is now currently holding the Betadine gauze and normal saline to The wound. No active bleeding. Recs and meds obtained per ENT's recs. ENT able to suture wound here in ED. No complications. Patient tolerated procedure well. Follow up per ENT. Discussed with patient his work up in the ED including diagnosis, home care, follow up, and return precautions. Infection risk explained. All questions answered. Patient expressed understanding of these instructions and was agreeable to them. Consult obtained from ENT. Disposition: Discharged. Condition: good. CLINICAL IMPRESSION Adjustment disorder with disturbance of conduct. Multiple deep lacerations to the upper lip. Complicated repair. No foreign body present. Multiple deep dog bites. acute alcohol abuse. INSTRUCTIONS Warnings: GENERAL WARNINGS: Return or contact your physician immediately if your condition worsens or changes unexpectedly, if not improving as expected, or if other problems arise. Specifically return if pain, vomiting, bleeding, breathing difficulty or fever. Your Current Medications: CONTINUE TAKING THE FOLLOWING MEDICATIONS: None*. Prescription Medications: Augmentin 875 mg: take 1 tablet orally every 12 hours for 10 days. No refill. Substitution is permissible. Oxycodone 5 mg tablets: take 1 orally every 6 hours as needed for pain. Dispense ten (10). No refill. Follow-up: Return to the emergency department as needed. Follow up with an ear, nose and throat physician (an airframe design engineer) as scheduled. Reason for referral: recheck today's concerns. Summary of care provided to patient via paper. Follow up with your doctor in three. Reason for referral: recheck today's concerns. Summary of care provided to patient via paper. Screening today revealed the patient's blood pressure to be in the normal range. The patient should follow up with a primary care provider for blood pressure management. Understanding of the discharge instructions verbalized by patient. Follow-up with: Yandel Lindsay MD, ENT, , [facility], [address] [place] [address], [facility], [id number] Follow up as scheduled. Reason for referral: recheck today's concerns. Summary of care provided to patient via paper. (Electronically signed by Nitesh Somers Dr. 10/13/2016 17:52)
--- NOTE | 2016-10-12 15:06 | ED CLINICAL REPORT ---
Clinical Report - Physicians/Mid Levels [facility] [address] [place] [address] 10/12/2016 12:51 Patient: SAMARA SALAZAR Time Seen: 1300. Arrived- By private vehicle. Historian- patient. HISTORY OF PRESENT ILLNESS Location of injuries- face. Chief Complaint: DOG BITE. The injury occurred just prior to arrival. The animal reportedly appeared well and is up to date on immunizations. Occurred at home. This was an "unprovoked" attack. No skin rash or difficulty breathing. 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 REVIEW OF SYSTEMS No headache, difficulty breathing, weakness, chest pain or fever. No abdominal pain. no other areas of injury or pain. All systems otherwise negative, except as recorded above. PAST HISTORY See nurses notes. Tetanus immunization status is up-to-date. Medications: None. Allergies: NKDA. SOCIAL HISTORY Smoker- current status unknown. Alcohol use. No drug use. No recent travel. Is a local resident. ADDITIONAL NOTES The nursing notes have been reviewed. PHYSICAL EXAM Vital Signs: 10/12/2016 12:55 BP: 140/94. HR: 86. RR: 20. O2 saturation: 97%. Temp: 97.4 F. Pain level now: 10/10. Oxygen saturation normal. Appearance: Alert. Oriented X3. Patient in mild distress. (non-toxic. swearing. rude. degrading towards staff. yelling out loud stating that he does not want to be here.). Head: Head normal on inspection and non-tender. No Salazar's sign or raccoon eyes. (Large laceration from the right upper lip to the inferior cheek with several flaps. Through and through. No FB. Bleeding controlled with pressure.). Eyes: Pupillary exam: Right pupil 4mm, round and reactive to light directly and consensually and with accommodation. Left pupil: 4mm, round and reactive to light directly and consensually and with accommodation. Eyes normal inspection. No ocular injury. ENT: Ears normal on inspection. Nose normal on inspection. Mouth normal on inspection. No hemotympanum. No malocclusion. Neck: Normal inspection. No decreased ROM or muscle spasm in the neck. No pain with movement of head/neck. Neck non-tender. Painless ROM. No vertebral tenderness. CVS: Heart sounds normal. Pulses normal. Respiratory: Chest normal on inspection. Breath sounds normal. Chest nontender. Abdomen: Normal inspection. Soft and nontender. Bowel sounds normal. Back: Normal inspection. No tenderness. ROM normal. Skin: Skin intact. Skin warm and dry. Normal skin color. Normal skin turgor. Extremities: Normal inspection. Pelvis stable. Extremities atraumatic. No lower extremity edema. Neuro: Magnus Coma Scale: 15- eyes open spontaneously (4); best verbal response- oriented x 3 (5); best motor response- obeys commands (6). Oriented X 3. No motor deficit. No sensory deficit. PROGRESS AND PROCEDURES Course of Care: the patient is a 55-year-old male presenting for evaluation of dog bite to the face. Patient is being abusive verbally to staff. Patient is swearing and cussing at staff members. Patient states that he does not want to be here. Patient however was encouraged by nursing staff and myself to stay and get medical treatment for the severe lacerations to the face. After initial evaluation of the patient, I had ordered pain medication and consult with your nose and throat doctor per the patient's request of wanting someone else other than myself to sew the wound because of the location and cosmetic sensitivity issues. Informed the patient about the ear nose and throat doctor needing to attend to other duties at another health care facility and will be able to treat the patient once this is been completed. Estimated weight time was approximately an hour and a half. When the patient was updated and told that he was going to get pain medication, patient said Sarcastically, "thank you for the pain medication oh by the way, fuck you." unclear why patient is being verbally abusive to staff. We have been professional and curious with the patient throughout his stay. I am particularly upset with the way patient has been treating our staff. Patient has been disrupting other patient care while here in the emergency department as well which is similarly upsetting. A patient came out of his room and told the patient to be quiet. Security called. Patient is accompanied by an acquaintance who is also encouraging patient to stay however does realize the patient's uncooperative behavior. Patient is intoxicated however is able to make medical decisions for himself. Do not feel I can force the patient to stay against his will. patient was able to have his wound irrigated and is now currently holding the Betadine gauze and normal saline to The wound. No active bleeding. Recs and meds obtained per ENT's recs. ENT able to suture wound here in ED. No complications. Patient tolerated procedure well. Follow up per ENT. Discussed with patient his work up in the ED including diagnosis, home care, follow up, and return precautions. Infection risk explained. All questions answered. Patient expressed understanding of these instructions and was agreeable to them. Consult obtained from ENT. Disposition: Discharged. Condition: good. CLINICAL IMPRESSION Adjustment disorder with disturbance of conduct. Multiple deep lacerations to the upper lip. Complicated repair. No foreign body present. Multiple deep dog bites. acute alcohol abuse. INSTRUCTIONS Warnings: GENERAL WARNINGS: Return or contact your physician immediately if your condition worsens or changes unexpectedly, if not improving as expected, or if other problems arise. Specifically return if pain, vomiting, bleeding, breathing difficulty or fever. Your Current Medications: CONTINUE TAKING THE FOLLOWING MEDICATIONS: None*. Prescription Medications: Augmentin 875 mg: take 1 tablet orally every 12 hours for 10 days. No refill. Substitution is permissible. Oxycodone 5 mg tablets: take 1 orally every 6 hours as needed for pain. Dispense ten (10). No refill. Follow-up: Return to the emergency department as needed. Follow up with an ear, nose and throat physician (an assistant golf professional) as scheduled. Reason for referral: recheck today's concerns. Summary of care provided to patient via paper. Follow up with your doctor in three. Reason for referral: recheck today's concerns. Summary of care provided to patient via paper. Screening today revealed the patient's blood pressure to be in the normal range. The patient should follow up with a primary care provider for blood pressure management. Understanding of the discharge instructions verbalized by patient. Follow-up with: Yandel Lindsay MD, ENT, , [facility], [address] [place] [address], [facility], [id number] Follow up as scheduled. Reason for referral: recheck today's concerns. Summary of care provided to patient via paper. (Electronically signed by Nitesh Somers Dr. 10/13/2016 17:52)
--- NOTE | 2016-10-12 15:06 | ED NURSING NOTES ---
Clinical Report - Nurses [facility] [address] [place] [address] 10/12/2016 12:51 Patient: SAMARA SALAZAR TRIAGE Triage time 12:55 Oct 12 2016. Acuity: LEVEL 3. Chief Complaint: DOG BITE. SEPSIS SCREEN: Sepsis Screen. Negative (no infection suspected/documented). --13:01 Nella Brian R.N. 12:55 10/12/16. BP: 140/94. HR: 86. RR: 20. O2 saturation: 97%. Temp: 97.4 F. Pain level now: 03/17. --13:01 Nella Brian R.N. Weight: 81.6 kg estimated. Height/Length: 70 inches Estimated. BMI: 25.8. --13:00 Nella Brian R.N. Medications None. --12:56 Nella Brina R.N. Allergies NKDA. --12:57 Nella Brian R.N. History Arrived by private vehicle. Historian: patient. Accompanied by friend. Location of injuries: upper lip. This occurred just prior to arrival. Patient was playing with the animal. He has had swelling. 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 PAST MEDICAL HX: Tetanus status: unknown. Immunizations: status is unknown. SOCIAL HX: Current every day heavy tobacco smoker (cigarette)- 1 pack per day. Heavy alcohol use. History of drug use: marijuana. No infectious disease exposure. SELF HARM ASSESSMENT: A self harm assessment was performed. The patient answered "no" to the question "Do you have thoughts of harming or killing yourself?". FALL RISK ASSESSMENT: Fall risk assessment completed. No fall risk identified. NUTRITIONAL RISK ASSESSMENT: The nutritional risk assessment revealed no deficiencies. FUNCTIONAL ASSESSMENT: Functional assessment: no impairments noted. LEARNING NEEDS ASSESSMENT: The learning needs assessment revealed no barriers. ABUSE ASSESSMENT: Abuse assessment: The patient was asked "Do you feel safe in your home?". SKIN INTEGRITY ASSESSMENT: Skin integrity risk assessment completed. No skin integrity risk identified. --13:01 Nella Brian R.N. PROBLEMS: Mental Illness. Anxiety Reaction. Schizoaffective Disorder. Neck Pain. --12:57 Nella Brian R.N. Interventions ID band on patient. --13:01 Nella Brian R.N. PHYSICAL ASSESSMENT GENERAL / NEURO / PSYCH: Alert. Oriented X 4. Appears in pain. HEENT: Mouth: swelling and deep 4.0 cm laceration (involving the vermilion border of the lip) of the upper lip. RESPIRATORY: Respirations not labored. CVS: Capillary refill less than 2 seconds. GI / : Abdomen soft. Abdominal tenderness in the left side of the abdomen. EXTREMITIES: Extremities exhibit normal ROM. Neuro-vascular status intact to the extremity. SKIN: Bleeding is present to the face. --13:04 Nella Brian R.N. NURSING PROGRESS NOTES Patient identifiers checked. Call light placed in reach. Side rails up. Bed placed in lowest position. Brakes of bed on. --13:04 Nella Brian R.N. ( pt yelling in hallway states that he wants to leave and then will say that he want a plastic surgeon. Pt intoxicated and rambling, swearing at staff. pt agreed to stay if we call someone in. pts friend is with him and assisting in keeping patient calm.). --13:16 Nella Brian R.N. 13:31 10/12/2016 Augmentin (Amoxicillin-Pot Clavulanate) PO Tablets 875 mg given. Allergies verified and confirmed 5 rights. --13:31 Nella Brian R.N. 13:32 10/12/2016 Morphine (Morphine Sulfate (PF)) IM 8 mg given. Given in the left deltoid. Allergies verified, confirmed 5 rights and sedative warning given to the patient. (pt requested entire injection into right deltoid.). --13:32 Nella Brian R.N. Wound irrigated with 500 mL sterile NS; patient tolerated procedure well. Applied dressing (applied gauze with saline and betadine to open wound.). --13:55 Nella Brian R.N. 15:20. WOUND REPAIR: Wound repair performed by plastic surgeon. Assisted by one nurse and tech. The wound is located on the mouth. The wound is irregular. Preparation: suture tray set-up and plastics tray set-up with 1% lidocaine; Betadine. Wound cleansed per physician with Betadine and irrigated per physician. Procedure: wound repaired with sutures (3packs of sutures.). Post-procedure: he was stable, no complications, bleeding controlled, neuro-vascular status intact distal to wound and wound care instructions given. Estimated blood loss: 10 mL. Total time of assist / procedure: 60 minutes. --15:36 Eva Spears R.N. DISPOSITION / DISCHARGE Condition at departure: improved. No learning barriers present. Discharge instructions provided and reviewed with the patient. Reviewed medication(s) side effects, precautions, dosing and course information. Prescription(s) given to the patient. Reviewed wound care instructions. Work note given. Patient verbalized understanding. Written instructions provided in Yoruba. The patient was discharged home and accompanied by financial administration officer. He left the Emergency Department ambulatory and via private vehicle. Wirer Maintenance driving. Medication list reviewed and validated. --15:40 Eva Spears R.N. 15:37 10/12/16. BP: 118/75. HR: 84. RR: 18. O2 saturation: 96% on room air. Pain level now: 0. 12:55 10/12/16. BP: 140/94. HR: 86. RR: 20. O2 saturation: 97%. Temp: 97.4 F. Pain level now: 03/17. --15:41 Eva Spears R.N. Locked/Released at 10/12/2016 15:44 by Eva Spears R.N.
--- NOTE | 2016-10-12 15:06 | ED ORDER SUMMARY ---
..... Patient: SAMARA SALAZAR OrderSheet [facility] VisitID: [id number] [place] [address] 55y, M Registration Date/Time: 10/12/2016 ORDER SHEET Weight: 81.6 kg (estimated) Allergies: NKDA GENERAL ORDERS: Irrigate Wounds (13:10 10/12/2016 Marielena Kingston) (Ack 13:15 TBergley) (13:54 Stanislaw R.N.) Irrigate Wounds (13:12 10/12/2016 Marielena Kingston) (Ack 13:15 TBergley) (13:54 Stanislaw R.N.) -- (betadine and NS soake to wound) (13:16 10/12/2016 Marielena Kingston) (Ack 13:20 TBergley) (13:54 Stanislaw R.N.) - (13:18 10/12/2016 Marielena Kingston) (Ack 13:20 TBergley) (13:23 TBergley) Consult - ENT (13:18 10/12/2016 Marielena Kingston) (Ack 13:20 TBergley) (13:23 TBergley) MEDICATION ORDERS: Morphine IM 8 mg (once now) (13:09 10/12/2016 Marielena Kingston) (13:32 KKnebel R.N.) Augmentin PO 875 mg (NOW) (13:12 10/12/2016 Marielena Kingston) (13:31 LUPEnebel R.N.) IV FLUIDS: ORDER SHEET NOTES: [Electronically signed by Eva Spears R.N. (15:44 10/12/2016)] [Electronically signed by Nitesh Somers Dr. (17:52 10/13/2016)] [Electronically locked/signed by Eva Spears R.N. (15:44 10/12/2016)]
--- NOTE | 2016-10-12 15:06 | ED NURSING NOTES ---
Clinical Report - Nurses [facility] [address] [place] [address] 10/12/2016 12:51 Patient: SAMARA SALAZAR TRIAGE Triage time 12:55 Oct 12 2016. Acuity: LEVEL 3. Chief Complaint: DOG BITE. SEPSIS SCREEN: Sepsis Screen. Negative (no infection suspected/documented). --13:01 Nella Brian R.N. 12:55 10/12/16. BP: 140/94. HR: 86. RR: 20. O2 saturation: 97%. Temp: 97.4 F. Pain level now: 03/17. --13:01 Nella Brian R.N. Weight: 81.6 kg estimated. Height/Length: 70 inches Estimated. BMI: 25.8. --13:00 Nella Brian R.N. Medications None. --12:56 Nella Brian R.N. Allergies NKDA. --12:57 Nella Brian R.N. History Arrived by private vehicle. Historian: patient. Accompanied by friend. Location of injuries: upper lip. This occurred just prior to arrival. Patient was playing with the animal. He has had swelling. Treatment TOOL SMITH: None. PAST MEDICAL HX: Tetanus status: unknown. Immunizations: status is unknown. SOCIAL HX: Current every day heavy tobacco smoker (cigarette)- 1 pack per day. Heavy alcohol use. History of drug use: marijuana. No infectious disease exposure. SELF HARM ASSESSMENT: A self harm assessment was performed. The patient answered "no" to the question "Do you have thoughts of harming or killing yourself?". FALL RISK ASSESSMENT: Fall risk assessment completed. No fall risk identified. NUTRITIONAL RISK ASSESSMENT: The nutritional risk assessment revealed no deficiencies. FUNCTIONAL ASSESSMENT: Functional assessment: no impairments noted. LEARNING NEEDS ASSESSMENT: The learning needs assessment revealed no barriers. ABUSE ASSESSMENT: Abuse assessment: The patient was asked "Do you feel safe in your home?". SKIN INTEGRITY ASSESSMENT: Skin integrity risk assessment completed. No skin integrity risk identified. --13:01 Nella Brian R.N. PROBLEMS: Mental Illness. Anxiety Reaction. Schizoaffective Disorder. Neck Pain. --12:57 Nella Brian R.N. Interventions ID band on patient. --13:01 Nella Brian R.N. PHYSICAL ASSESSMENT GENERAL / NEURO / PSYCH: Alert. Oriented X 4. Appears in pain. HEENT: Mouth: swelling and deep 4.0 cm laceration (involving the vermilion border of the lip) of the upper lip. RESPIRATORY: Respirations not labored. CVS: Capillary refill less than 2 seconds. GI / : Abdomen soft. Abdominal tenderness in the left side of the abdomen. EXTREMITIES: Extremities exhibit normal ROM. Neuro-vascular status intact to the extremity. SKIN: Bleeding is present to the face. --13:04 Nella Brian R.N. NURSING PROGRESS NOTES Patient identifiers checked. Call light placed in reach. Side rails up. Bed placed in lowest position. Brakes of bed on. --13:04 Nella Brian R.N. ( pt yelling in hallway states that he wants to leave and then will say that he want a plastic surgeon. Pt intoxicated and rambling, swearing at staff. pt agreed to stay if we call someone in. pts friend is with him and assisting in keeping patient calm.). --13:16 Nella Brian R.N. 13:31 10/12/2016 Augmentin (Amoxicillin-Pot Clavulanate) PO Tablets 875 mg given. Allergies verified and confirmed 5 rights. --13:31 Nella Brian R.N. 13:32 10/12/2016 Morphine (Morphine Sulfate (PF)) IM 8 mg given. Given in the left deltoid. Allergies verified, confirmed 5 rights and sedative warning given to the patient. (pt requested entire injection into right deltoid.). --13:32 Nella Brian R.N. Wound irrigated with 500 mL sterile NS; patient tolerated procedure well. Applied dressing (applied gauze with saline and betadine to open wound.). --13:55 Nella Brian R.N. 15:20. WOUND REPAIR: Wound repair performed by plastic surgeon. Assisted by one nurse and tech. The wound is located on the mouth. The wound is irregular. Preparation: suture tray set-up and plastics tray set-up with 1% lidocaine; Betadine. Wound cleansed per physician with Betadine and irrigated per physician. Procedure: wound repaired with sutures (3packs of sutures.). Post-procedure: he was stable, no complications, bleeding controlled, neuro-vascular status intact distal to wound and wound care instructions given. Estimated blood loss: 10 mL. Total time of assist / procedure: 60 minutes. --15:36 Eva Spears R.N. DISPOSITION / DISCHARGE Condition at departure: improved. No learning barriers present. Discharge instructions provided and reviewed with the patient. Reviewed medication(s) side effects, precautions, dosing and course information. Prescription(s) given to the patient. Reviewed wound care instructions. Work note given. Patient verbalized understanding. Written instructions provided in Yoruba. The patient was discharged home and accompanied by sql tech. He left the Emergency Department ambulatory and via private vehicle. Corporate Planning Manager driving. Medication list reviewed and validated. --15:40 Eva Spears R.N. 15:37 10/12/16. BP: 118/75. HR: 84. RR: 18. O2 saturation: 96% on room air. Pain level now: 0. 12:55 10/12/16. BP: 140/94. HR: 86. RR: 20. O2 saturation: 97%. Temp: 97.4 F. Pain level now: 03/17. --15:41 Eva Spears R.N. Locked/Released at 10/12/2016 15:44 by Eva Spears R.N.
--- NOTE | 2016-10-12 15:06 | ED ORDER SUMMARY ---
..... Patient: SAMARA SALAZAR OrderSheet [facility] VisitID: [id number] [place] [address] 55y, M Registration Date/Time: 10/12/2016 ORDER SHEET Weight: 81.6 kg (estimated) Allergies: NKDA GENERAL ORDERS: Irrigate Wounds (13:10 10/12/2016 Marielena Kingston) (Ack 13:15 TBergley) (13:54 Stanislaw R.N.) Irrigate Wounds (13:12 10/12/2016 Marielena Kingston) (Ack 13:15 TBergley) (13:54 Stanislaw R.N.) -- (betadine and NS soake to wound) (13:16 10/12/2016 Marielena Kingston) (Ack 13:20 TBergley) (13:54 Stanislaw R.N.) - (13:18 10/12/2016 Marielena Kingston) (Ack 13:20 TBergley) (13:23 TBergley) Consult - ENT (13:18 10/12/2016 Marielena Kingston) (Ack 13:20 TBergley) (13:23 TBergley) MEDICATION ORDERS: Morphine IM 8 mg (once now) (13:09 10/12/2016 Marielena Kingston) (13:32 KKnebel R.N.) Augmentin PO 875 mg (NOW) (13:12 10/12/2016 Marielena Kingston) (13:31 LUPEnebel R.N.) IV FLUIDS: ORDER SHEET NOTES: [Electronically signed by Eva Spears R.N. (15:44 10/12/2016)] [Electronically signed by Nitesh Somers Dr. (17:52 10/13/2016)] [Electronically locked/signed by Eva Spears R.N. (15:44 10/12/2016)]
--- NOTE | 2016-10-13 13:52 | CONSULTATION REPORT ---
DATE OF CONSULTATION: 10/12/2016 HISTORY OF PRESENT ILLNESS: The patient was seen about 3 in the afternoon, [facility] Emergency Department. A 55-year-old male who apparently suffered a severe dog bite with severe lacerations of his right upper lip, and a consultation was requested. Other history as per the emergency department physician. PHYSICAL EXAMINATION: GENERAL: Belligerent, uncooperative, intoxicated male. Presumably suffering from some sort of mental derangement, such that he could not follow orders well or cooperate well on the examination table. HEENT: Ears, nose and throat exam is remarkable for extensive lacerations through and through the upper lip, up to the level of the gingival buccal sulcus internally, extending somewhat above the base of the nose, with double laceration 2 cm apart , forming a V wedge inferiorly, and additional lip lacerations off to the right. IMPRESSION: 1. Hxobcte-owa-fsdmrud complex lacerations of the right upper lip PLAN: Repair is suggested, and when the patient briefly calmed down enough, he did give his consent.
--- NOTE | 2016-10-13 13:54 | PROCEDURE NOTE ---
DATE OF PROCEDURE: 10/12/2016 ATTENDING PHYSICIAN/PROVIDER: Yandel Lindsay MD PREPROCEDURE DIAGNOSIS: 1. Multiple complex idxannl-cft-edacsuh lacerations, right upper lip. POSTPROCEDURE DIAGNOSIS: 1. Multiple complex dwqoddt-crk-dthuwvb lacerations, right upper lip. PROCEDURE PERFORMED: 1. Operation S01.511A. 2. Operation 83232. A 7.5 cm complex lip repair; 85164, additional 4.5 cm complex laceration, lip. INDICATIONS: Multiple complex through and through lacerations, right upper lip. PROCEDURE FINDINGS: A 12 cm total lacerations, through and through, the right upper lip. DESCRIPTION OF PROCEDURE: With the patient supine on the treatment table, the area was prepped and draped in a sterile fashion; 2% Xylocaine with epinephrine was used for field block anesthesia and hemostasis. Starting with the totally transected orbicularis arcelia muscle and working towards the mucosa of the lip and vermilion with 4-0 chromic, and then the deep tissues going up and laterally on the upper lip, followed by subcutaneous closure, all with 4-0 chromic. Once this jig-saw puzzle was put together, 4-0 chromic partially-interrupted, partially running sutures were placed on the internal lip , on the vermilion, matching the vermilion mucocutaneous junction. The same suture was then utilized on the external cutaneous region, after thoroughly soaking the wounds in Betadine for sterility. Ointment applied. Procedure terminated. The patient and his friend were counseled to continue to use ointment several times a day, Bacitracin or Polysporin. They should recheck in our clinic, ENT, [facility] in [place], and about . The patient's compliance is at a suspected very low level, which is why eventually self-dissolving stitches were used throughout, since it is conceivable that he will fail his postoperative appointment.
--- NOTE | 2016-10-13 13:54 | PROCEDURE NOTE ---
DATE OF PROCEDURE: 10/12/2016 ATTENDING PHYSICIAN/PROVIDER: Yandel Lindsay MD PREPROCEDURE DIAGNOSIS: 1. Multiple complex ogbfpsb-tlb-odatdce lacerations, right upper lip. POSTPROCEDURE DIAGNOSIS: 1. Multiple complex lkysfwt-oyi-vmxzktx lacerations, right upper lip. PROCEDURE PERFORMED: 1. Operation S01.511A. 2. Operation 70497. A 7.5 cm complex lip repair; 89434, additional 4.5 cm complex laceration, lip. INDICATIONS: Multiple complex through and through lacerations, right upper lip. PROCEDURE FINDINGS: A 12 cm total lacerations, through and through, the right upper lip. DESCRIPTION OF PROCEDURE: With the patient supine on the treatment table, the area was prepped and draped in a sterile fashion; 2% Xylocaine with epinephrine was used for field block anesthesia and hemostasis. Starting with the totally transected orbicularis arcelia muscle and working towards the mucosa of the lip and vermilion with 4-0 chromic, and then the deep tissues going up and laterally on the upper lip, followed by subcutaneous closure, all with 4-0 chromic. Once this jig-saw puzzle was put together, 4-0 chromic partially-interrupted, partially running sutures were placed on the internal lip , on the vermilion, matching the vermilion mucocutaneous junction. The same suture was then utilized on the external cutaneous region, after thoroughly soaking the wounds in Betadine for sterility. Ointment applied. Procedure terminated. The patient and his friend were counseled to continue to use ointment several times a day, Bacitracin or Polysporin. They should recheck in our clinic, ENT, [facility] in [place], and about . The patient's compliance is at a suspected very low level, which is why eventually self-dissolving stitches were used throughout, since it is conceivable that he will fail his postoperative appointment.
--- NOTE | 2016-10-13 17:52 | ED MED RECONCILIATION SUMMARY ---
Patient: SAMARA SALAZAR Medication Reconciliation Report [facility] VisitID: [id number] [address] [place] [address] 55y, M Registration Date/Time: 10/12/2016 Weight: 81.6 kg Height/Length: 70 in. BMI: 25.8 ALLERGIES: NKDA The patient's Home Medications are listed below: NONE. The source(s) of the original Home Medication information: Not obtained. The following Medications were given to the patient in the Emergency Department: Augmentin [PO] PO 875 mg, administered: 10/12/2016 1:31:00 PM Morphine [IM] IM 8 mg, administered: 10/12/2016 1:32:00 PM The following Medications were prescribed to the patient: Augmentin 875 mg: take 1 tablet orally every 12 hours for 10 days. No refill. Substitution is permissible. -- Nitesh Soemrs Dr. Oxycodone 5 mg tablets: take 1 orally every 6 hours as needed for pain. Dispense ten (10). No refill. -- Nitesh Somers Dr.
--- NOTE | 2016-10-13 17:52 | ED DISCHARGE INSTRUCTIONS ---
Patient: SAMARA SALAZAR General Instructions [facility] VisitID: [id number] [address] [place] [address] 55y, M Registration Date/Time: 10/12/2016 Adjustment disorder with disturbance of conduct. Multiple deep lacerations to the upper lip. Complicated repair. No foreign body present. Multiple deep dog bites. acute alcohol abuse. INSTRUCTIONS Warnings: GENERAL WARNINGS: Return or contact your physician immediately if your condition worsens or changes unexpectedly, if not improving as expected, or if other problems arise. Specifically return if pain, vomiting, bleeding, breathing difficulty or fever. Your Current Medications: CONTINUE TAKING THE FOLLOWING MEDICATIONS: None*. Prescription Medications: Augmentin 875 mg: take 1 tablet orally every 12 hours for 10 days. No refill. Substitution is permissible. Oxycodone 5 mg tablets: take 1 orally every 6 hours as needed for pain. Dispense ten (10). No refill. Follow-up: Return to the emergency department as needed. Follow up with an ear, nose and throat physician (an chaplain resident) as scheduled. Reason for referral: recheck today's concerns. Summary of care provided to patient via paper. Follow up with your doctor in three. Reason for referral: recheck today's concerns. Summary of care provided to patient via paper. Screening today revealed the patient's blood pressure to be in the normal range. The patient should follow up with a primary care provider for blood pressure management. Understanding of the discharge instructions verbalized by patient. Follow-up with: Yandel Lindsay MD, ENT, , [facility], [address] [place] [address], [id number] Follow up as scheduled. Reason for referral: recheck today's concerns. Summary of care provided to patient via paper. ADDITIONAL INFORMATION Dog Bite If a dog has bitten you and the wound is deep enough to break the skin, an infection may occur. Therefore, you should watch for the warning signs listed below. The doctor may not close the wound completely. This is to allow fluid to drain in the event of an infection. Home Care Watch the wound for signs of infection listed below. In certain types of bites, antibiotics may be prescribed. Begin taking these as soon as possible, as directed until they are all gone. Rabies Prevention If you live in an area where rabies occurs in wild animals, the rabies virus can be passed to cats and dogs. An infected animal can pass the rabies virus to you during a bite. If ahealthy-looking pet dog has bitten you, it should be kept in a secure area for the next 10 days to watch for signs of illness. If the pet power plant operators supervisor wont cooperate with you, contact the [facility] animal control department (or local law enforcement). If the animal becomes ill or dies days, contact your animal control department at once. The animal must be tested for rabies. If the animal stays healthy for the next 10 days, then there is no danger of rabies in the dog or you. Pets fully vaccinated against rabies (2 shots) are at very low risk for the infection. However, because human rabies is almost always fatal, any biting dog should be kept in confinement for 10 days as an extra precaution. If a stray dog bit you, contact the animal control department. They can provide information on capture, quarantine, and animal rabies testing. If you are unable to locate the animal that bit you in the next 2days, and if rabies exists in your region, you must be evaluated for the rabies vaccine series. Contact your doctor or return here promptly. All animal bites should be reported to the [facility] animal control department. If you were not given a form to fill out, you can report it yourself by calling. Follow Up with your doctor as advised. Most skin wounds heal within 10 days. However, an infection may occur even with proper treatment. Check your woundevery 6 hoursfor 2 days, then at least once a day for the next two days for the signs of infection listed below. Get Prompt Medical Attention if any of the following occur: Signs of infection: Spreading redness Increased pain or swelling Fever of 100.4F (38C) or higher, or as directed by your healthcare provider Colored fluid or pus draining from the wound Headache, confusion, strange behavior, or a seizure (signs of a rabies infection) Laceration, Face (Suture Or Tape) Alaceration is a cut through the skin. This will require stitches if it is deep. Minor cuts may be treated with surgical tape. Home care The following guidelines will help you care for your laceration at home: If a bandage was applied and it becomes wet or dirty, replace it. Otherwise, leave it in place for the first 24 hours, then change it once a day or as directed. If sutures were used, clean the wound daily: After removing the bandage, wash the area with soap and water. Use a wet cotton swab to loosen and remove any blood or crust that forms. After cleaning, keep the wound clean and dry. Talk with your doctor before applying any antibiotic ointment to the wound. Reapply a fresh bandage. You may remove the bandage to shower as usual after the first 24 hours, but do not soak the area in water (no swimming) until the sutures are removed. If surgical tape was used, keep the area clean and dry. If it becomes wet, blot it dry with a towel. The doctor may prescribe an antibiotic cream or ointment to prevent infection. Do not stop taking this medication until you have have finished the prescribed course or the doctor tells you to stop. The doctor may also prescribe medications for pain. Follow the doctor's instructions for taking these medications.If you have chronic liver or kidney disease or ever had a stomach ulcer or GI bleeding, talk with your doctor before using these medicines. Follow-up care Follow up with your health care provider. Most facial cuts heal in five days with no problem. However, even with proper treatment, a wound infection sometimes occurs. Therefore, check the wound daily for the warning signs listed below. Stitches should not be left in the face for more thanfivedays; otherwise, permanent stitch rangel may form. If surgical tape closures were used, you may remove them yourself afterfivedays, if they have not fallen off by then. When to seek medical care Get prompt medical attention if any of these occur: Increasing pain in the wound Redness, swelling, or pus coming from the wound If sutures come apart or fall out before 5 days If the surgical tape closures fall off before 5 days, or the wound edges reopen Fever of 100.4F (38C) or higher, or as directed by your health care provider Bleeding not controlled by direct pressure Adjustment Disorder An adjustment disorder is a condition that results from having a hard time coping with the normal stresses of life. You may feel you have too much to do and cant get it all done. These feelings may be triggered by divorce, job loss, someone you know dying, or by a positive event like getting a new job or getting . These feelings may interfere with your relationships at home and at work. With this condition, it is common to feel sad, guilty, hopeless and restless. These feelings may continue for weeks or months. It can be helpful to identify what is causing the additional stress and takes steps to get extra support. If new stressful events do not occur, it is likely that you will start feeling better within six months. Home Care: If you have been given a prescription for medicine, take it as directed. It helps to talk about your feelings and thoughts with family or friends that understand and support you. Follow Up with your doctor or therapist as advised by our staff. Let them know if this condition lasts more than six months without sign of improvement. For more information, contact the [employer] [place] [employer] at 359-433-3399 or visit www.yair.org. Get Prompt Medical Attention if any of the following occur: Worsening depression or anxiety Feeling out of control Thoughts of harming yourself or another Being unable to care for yourself Amoxicillin Trihydrate, Clavulanate Potassium Oral tablet What is this medicine? AMOXICILLIN; CLAVULANIC ACID (a mox i CHARLEY in; IVAN lozano ic id) is a penicillin antibiotic. It is used to treat certain kinds of bacterial infections. It will not work for colds, flu, or other viral infections. How should I use this medicine? Take this medicine by mouth with a full glass of water. Follow the directions on the prescription label. Take at the start of a meal. Do not crush or chew. If the tablet has a score line, you may cut it in half at the score line for easier swallowing. Take your medicine at regular intervals. Do not take your medicine more often than directed. Take all of your medicine as directed even if you think you are better. Do not skip doses or stop your medicine early. Talk to your merchandise clerk regarding the use of this medicine in children. Special care may be needed. What side effects may I notice from receiving this medicine? Side effects that you should report to your doctor or health hospice care transitions coordinator as soon as possible: allergic reactions like skin rash, itching or hives, swelling of the face, lips, or tongue breathing problems dark urine fever or chills, sore throat redness, blistering, peeling or loosening of the skin, including inside the mouth seizures trouble passing urine or change in the amount of urine unusual bleeding, bruising unusually weak or tired white patches or sores in the mouth or throat Side effects that usually do not require medical attention (report to your doctor or health hospice care transitions coordinator if they continue or are bothersome): diarrhea dizziness headache nausea, vomiting stomach upset vaginal or anal irritation What may interact with this medicine? allopurinol anticoagulants control pills methotrexate probenecid What if I miss a dose? If you miss a dose, take it as soon as you can. If it is almost time for your next dose, take only that dose. Do not take double or extra doses. Where should I keep my medicine? Keep out of the reach of children. Store at room temperature below 25 degrees C (77 degrees F). Keep container tightly closed. Throw away any unused medicine after the expiration date. What should I tell my health care provider before I take this medicine? They need to know if you have any of these conditions: bowel disease, like colitis kidney disease liver disease mononucleosis an unusual or allergic reaction to amoxicillin, penicillin, cephalosporin, other antibiotics, clavulanic acid, other medicines, foods, dyes, or preservatives or trying to get breast-feeding What should I watch for while using this medicine? Tell your doctor or health hospice care transitions coordinator if your symptoms do not improve. Do not treat diarrhea with over the counter products. Contact your doctor if you have diarrhea that lasts more than 2 days or if it is severe and watery. If you have diabetes, you may get a false-positive result for sugar in your urine. Check with your doctor or health hospice care transitions coordinator. control pills may not work properly while you are taking this medicine. Talk to your doctor about using an extra method of control. Oxycodone Hydrochloride, Acetaminophen Oral tablet What is this medicine? ACETAMINOPHEN; OXYCODONE (a set a GLADYS rene fen; ox i KOE done) is a pain reliever. It is used to treat mild to moderate pain. How should I use this medicine? Take this medicine by mouth with a full glass of water. Follow the directions on the prescription label. Take your medicine at regular intervals. Do not take your medicine more often than directed. Talk to your merchandise clerk regarding the use of this medicine in children. Special care may be needed. Patients over 65 years old may have a stronger reaction and need a smaller dose. What side effects may I notice from receiving this medicine? Side effects that you should report to your doctor or health hospice care transitions coordinator as soon as possible: allergic reactions like skin rash, itching or hives, swelling of the face, lips, or tongue breathing difficulties, wheezing confusion light headedness or fainting spells severe stomach pain yellowing of the skin or the whites of the eyes Side effects that usually do not require medical attention (report to your doctor or health hospice care transitions coordinator if they continue or are bothersome): dizziness drowsiness nausea vomiting What may interact with this medicine? alcohol antihistamines barbiturates like amobarbital, butalbital, butabarbital, methohexital, pentobarbital, phenobarbital, thiopental, and secobarbital benztropine drugs for bladder problems like solifenacin, trospium, oxybutynin, tolterodine, hyoscyamine, and methscopolamine drugs for breathing problems like ipratropium and tiotropium drugs for certain stomach or intestine problems like propantheline, homatropine methylbromide, glycopyrrolate, atropine, belladonna, and dicyclomine general anesthetics like etomidate, ketamine, nitrous oxide, propofol, desflurane, enflurane, halothane, isoflurane, and sevoflurane medicines for depression, anxiety, or psychotic disturbances medicines for sleep muscle relaxants naltrexone narcotic medicines (opiates) for pain phenothiazines like perphenazine, thioridazine, chlorpromazine, mesoridazine, fluphenazine, prochlorperazine, promazine, and trifluoperazine scopolamine tramadol trihexyphenidyl What if I miss a dose? If you miss a dose, take it as soon as you can. If it is almost time for your next dose, take only that dose. Do not take double or extra doses. Where should I keep my medicine? Keep out of the reach of children. This medicine can be abused. Keep your medicine in a safe place to protect it from theft. Do not share this medicine with anyone. Selling or giving away this medicine is dangerous and against the law. Store at room temperature between 20 and 25 degrees C (68 and 77 degrees F). Keep container tightly closed. Protect from light. This medicine may cause accidental overdose and if it is taken by other adults, children, or pets. Flush any unused medicine down the toilet to reduce the chance of harm. Do not use the medicine after the expiration date. What should I tell my health care provider before I take this medicine? They need to know if you have any of these conditions: brain tumor Crohn's disease, inflammatory bowel disease, or ulcerative colitis drink more than 3 alcohol containing drinks per day drug abuse or addiction head injury heart or circulation problems kidney disease or problems going to the bathroom liver disease lung disease, asthma, or breathing problems an unusual or allergic reaction to acetaminophen, oxycodone, other opioid analgesics, other medicines, foods, dyes, or preservatives or trying to get breast-feeding What should I watch for while using this medicine? Tell your doctor or health hospice care transitions coordinator if your pain does not go away, if it gets worse, or if you have new or a different type of pain. You may develop tolerance to the medicine. Tolerance means that you will need a higher dose of the medication for pain relief. Tolerance is normal and is expected if you take this medicine for a long time. Do not suddenly stop taking your medicine because you may develop a severe reaction. Your body becomes used to the medicine. This does NOT mean you are addicted. Addiction is a behavior related to getting and using a drug for a non-medical reason. If you have pain, you have a medical reason to take pain medicine. Your doctor will tell you how much medicine to take. If your doctor wants you to stop the medicine, the dose will be slowly lowered over time to avoid any side effects. You may get drowsy or dizzy. Do not drive, use machinery, or do anything that needs mental alertness until you know how this medicine affects you. Do not stand or sit up quickly, especially if you are an older patient. This reduces the risk of dizzy or fainting spells. Alcohol may interfere with the effect of this medicine. Avoid alcoholic drinks. There are different types of narcotic medicines (opiates) for pain. If you take more than one type at the same time, you may have more side effects. Give your health care provider a list of all medicines you use. Your doctor will tell you how much medicine to take. Do not take more medicine than directed. Call emergency for help if you have problems breathing. The medicine will cause constipation. Try to have a bowel movement at least every 2 to 3 days. If you do not have a bowel movement for 3 days, call your doctor or health hospice care transitions coordinator. Do not take Tylenol (acetaminophen) or medicines that have acetaminophen with this medicine. Too much acetaminophen can be very dangerous. Many nonprescription medicines contain acetaminophen. Always read the labels carefully to avoid taking more acetaminophen. You have been given the following additional information: Dog Bite Laceration, Face (Suture Or Tape) Adjustment Disorder Amoxicillin Trihydrate, Clavulanate Potassium Oral tablet Oxycodone Hydrochloride, Acetaminophen Oral tablet (Electronically signed by Nitesh Somers Dr. 10/13/2016 17:52)
--- NOTE | 2016-10-13 17:52 | ED MAR SUMMARY ---
..... Medication Administration Record [facility] [address] [place] [address] Patient: SAMARA SALAZAR Visit ID: [id number] 55y, M Weight: 81.6 kg Height/Length: 70 in BMI: 25.8 ALLERGIES: NKDA Given 13:31 10/12/2016 Nella Brian R.N. Medication Administered: AUGMENTIN [PO] (AMOXICILLIN-POT CLAVULANATE), Dose: 875 mg Tablets PO. Medication Ordered: Augmentin PO 875 mg (NOW). Given 13:32 10/12/2016 Nella Brian RJeannie Medication Administered: MORPHINE [IM] (MORPHINE SULFATE (PF)), Dose: 8 mg IM. Medication Ordered: Morphine IM 8 mg (once now).
--- NOTE | 2016-10-13 17:52 | ED MED RECONCILIATION SUMMARY ---
Patient: SAMARA SALAZAR Medication Reconciliation Report [facility] VisitID: [id number] [address] [place] [address] 55y, M Registration Date/Time: 10/12/2016 Weight: 81.6 kg Height/Length: 70 in. BMI: 25.8 ALLERGIES: NKDA The patient's Home Medications are listed below: NONE. The source(s) of the original Home Medication information: Not obtained. The following Medications were given to the patient in the Emergency Department: Augmentin [PO] PO 875 mg, administered: 10/12/2016 1:31:00 PM Morphine [IM] IM 8 mg, administered: 10/12/2016 1:32:00 PM The following Medications were prescribed to the patient: Augmentin 875 mg: take 1 tablet orally every 12 hours for 10 days. No refill. Substitution is permissible. -- Nitesh Somers Dr. Oxycodone 5 mg tablets: take 1 orally every 6 hours as needed for pain. Dispense ten (10). No refill. -- Nitesh Somers Dr.
--- NOTE | 2016-10-13 17:52 | ED MAR SUMMARY ---
..... Medication Administration Record [facility] [address] [place] [address] Patient: SAMARA SALAZAR Visit ID: [id number] 55y, M Weight: 81.6 kg Height/Length: 70 in BMI: 25.8 ALLERGIES: NKDA Given 13:31 10/12/2016 Nella Brian R.N. Medication Administered: AUGMENTIN [PO] (AMOXICILLIN-POT CLAVULANATE), Dose: 875 mg Tablets PO. Medication Ordered: Augmentin PO 875 mg (NOW). Given 13:32 10/12/2016 Nella Brian RJeannie Medication Administered: MORPHINE [IM] (MORPHINE SULFATE (PF)), Dose: 8 mg IM. Medication Ordered: Morphine IM 8 mg (once now).
--- NOTE | 2016-10-13 17:52 | ED DISCHARGE INSTRUCTIONS ---
Patient: SAMARA SALAZAR General Instructions [facility] VisitID: [id number] [address] [place] [address] 55y, M Registration Date/Time: 10/12/2016 Adjustment disorder with disturbance of conduct. Multiple deep lacerations to the upper lip. Complicated repair. No foreign body present. Multiple deep dog bites. acute alcohol abuse. INSTRUCTIONS Warnings: GENERAL WARNINGS: Return or contact your physician immediately if your condition worsens or changes unexpectedly, if not improving as expected, or if other problems arise. Specifically return if pain, vomiting, bleeding, breathing difficulty or fever. Your Current Medications: CONTINUE TAKING THE FOLLOWING MEDICATIONS: None*. Prescription Medications: Augmentin 875 mg: take 1 tablet orally every 12 hours for 10 days. No refill. Substitution is permissible. Oxycodone 5 mg tablets: take 1 orally every 6 hours as needed for pain. Dispense ten (10). No refill. Follow-up: Return to the emergency department as needed. Follow up with an ear, nose and throat physician (an budget report clerk) as scheduled. Reason for referral: recheck today's concerns. Summary of care provided to patient via paper. Follow up with your doctor in three. Reason for referral: recheck today's concerns. Summary of care provided to patient via paper. Screening today revealed the patient's blood pressure to be in the normal range. The patient should follow up with a primary care provider for blood pressure management. Understanding of the discharge instructions verbalized by patient. Follow-up with: Yandel Lindsay MD, ENT, , [facility], [address] [place] [address], [id number] Follow up as scheduled. Reason for referral: recheck today's concerns. Summary of care provided to patient via paper. ADDITIONAL INFORMATION Dog Bite If a dog has bitten you and the wound is deep enough to break the skin, an infection may occur. Therefore, you should watch for the warning signs listed below. The doctor may not close the wound completely. This is to allow fluid to drain in the event of an infection. Home Care Watch the wound for signs of infection listed below. In certain types of bites, antibiotics may be prescribed. Begin taking these as soon as possible, as directed until they are all gone. Rabies Prevention If you live in an area where rabies occurs in wild animals, the rabies virus can be passed to cats and dogs. An infected animal can pass the rabies virus to you during a bite. If ahealthy-looking pet dog has bitten you, it should be kept in a secure area for the next 10 days to watch for signs of illness. If the pet human service specialist wont cooperate with you, contact the [facility] animal control department (or local law enforcement). If the animal becomes ill or dies [id number] days, contact your animal control department at once. The animal must be tested for rabies. If the animal stays healthy for the next 10 days, then there is no danger of rabies in the dog or you. Pets fully vaccinated against rabies (2 shots) are at very low risk for the infection. However, because human rabies is almost always fatal, any biting dog should be kept in confinement for 10 days as an extra precaution. If a stray dog bit you, contact the animal control department. They can provide information on capture, quarantine, and animal rabies testing. If you are unable to locate the animal that bit you in the next 2days, and if rabies exists in your region, you must be evaluated for the rabies vaccine series. Contact your doctor or return here promptly. All animal bites should be reported to the [facility] animal control department. If you were not given a form to fill out, you can report it yourself by calling. Follow Up with your doctor as advised. Most skin wounds heal within 10 days. However, an infection may occur even with proper treatment. Check your woundevery 6 hoursfor 2 days, then at least once a day for the next two days for the signs of infection listed below. Get Prompt Medical Attention if any of the following occur: Signs of infection: Spreading redness Increased pain or swelling Fever of 100.4F (38C) or higher, or as directed by your healthcare provider Colored fluid or pus draining from the wound Headache, confusion, strange behavior, or a seizure (signs of a rabies infection) Laceration, Face (Suture Or Tape) Alaceration is a cut through the skin. This will require stitches if it is deep. Minor cuts may be treated with surgical tape. Home care The following guidelines will help you care for your laceration at home: If a bandage was applied and it becomes wet or dirty, replace it. Otherwise, leave it in place for the first 24 hours, then change it once a day or as directed. If sutures were used, clean the wound daily: After removing the bandage, wash the area with soap and water. Use a wet cotton swab to loosen and remove any blood or crust that forms. After cleaning, keep the wound clean and dry. Talk with your doctor before applying any antibiotic ointment to the wound. Reapply a fresh bandage. You may remove the bandage to shower as usual after the first 24 hours, but do not soak the area in water (no swimming) until the sutures are removed. If surgical tape was used, keep the area clean and dry. If it becomes wet, blot it dry with a towel. The doctor may prescribe an antibiotic cream or ointment to prevent infection. Do not stop taking this medication until you have have finished the prescribed course or the doctor tells you to stop. The doctor may also prescribe medications for pain. Follow the doctor's instructions for taking these medications.If you have chronic liver or kidney disease or ever had a stomach ulcer or GI bleeding, talk with your doctor before using these medicines. Follow-up care Follow up with your health care provider. Most facial cuts heal in five days with no problem. However, even with proper treatment, a wound infection sometimes occurs. Therefore, check the wound daily for the warning signs listed below. Stitches should not be left in the face for more thanfivedays; otherwise, permanent stitch rangel may form. If surgical tape closures were used, you may remove them yourself afterfivedays, if they have not fallen off by then. When to seek medical care Get prompt medical attention if any of these occur: Increasing pain in the wound Redness, swelling, or pus coming from the wound If sutures come apart or fall out before 5 days If the surgical tape closures fall off before 5 days, or the wound edges reopen Fever of 100.4F (38C) or higher, or as directed by your health care provider Bleeding not controlled by direct pressure Adjustment Disorder An adjustment disorder is a condition that results from having a hard time coping with the normal stresses of life. You may feel you have too much to do and cant get it all done. These feelings may be triggered by divorce, job loss, someone you know dying, or by a positive event like getting a new job or getting . These feelings may interfere with your relationships at home and at work. With this condition, it is common to feel sad, guilty, hopeless and restless. These feelings may continue for weeks or months. It can be helpful to identify what is causing the additional stress and takes steps to get extra support. If new stressful events do not occur, it is likely that you will start feeling better within six months. Home Care: If you have been given a prescription for medicine, take it as directed. It helps to talk about your feelings and thoughts with family or friends that understand and support you. Follow Up with your doctor or therapist as advised by our staff. Let them know if this condition lasts more than six months without sign of improvement. For more information, contact the [employer] at 134-118-1570 or visit www.[facility]air.org. Get Prompt Medical Attention if any of the following occur: Worsening depression or anxiety Feeling out of control Thoughts of harming yourself or another Being unable to care for yourself Amoxicillin Trihydrate, Clavulanate Potassium Oral tablet What is this medicine? AMOXICILLIN; CLAVULANIC ACID (a mox i CHARLEY in; IVAN lozano ic id) is a penicillin antibiotic. It is used to treat certain kinds of bacterial infections. It will not work for colds, flu, or other viral infections. How should I use this medicine? Take this medicine by mouth with a full glass of water. Follow the directions on the prescription label. Take at the start of a meal. Do not crush or chew. If the tablet has a score line, you may cut it in half at the score line for easier swallowing. Take your medicine at regular intervals. Do not take your medicine more often than directed. Take all of your medicine as directed even if you think you are better. Do not skip doses or stop your medicine early. Talk to your supervisor [employer] regarding the use of this medicine in children. Special care may be needed. What side effects may I notice from receiving this medicine? Side effects that you should report to your doctor or health child caregiver as soon as possible: allergic reactions like skin rash, itching or hives, swelling of the face, lips, or tongue breathing problems dark urine fever or chills, sore throat redness, blistering, peeling or loosening of the skin, including inside the mouth seizures trouble passing urine or change in the amount of urine unusual bleeding, bruising unusually weak or tired white patches or sores in the mouth or throat Side effects that usually do not require medical attention (report to your doctor or health child caregiver if they continue or are bothersome): diarrhea dizziness headache nausea, vomiting stomach upset vaginal or anal irritation What may interact with this medicine? allopurinol anticoagulants control pills methotrexate probenecid What if I miss a dose? If you miss a dose, take it as soon as you can. If it is almost time for your next dose, take only that dose. Do not take double or extra doses. Where should I keep my medicine? Keep out of the reach of children. Store at room temperature below 25 degrees C (77 degrees F). Keep container tightly closed. Throw away any unused medicine after the expiration date. What should I tell my health care provider before I take this medicine? They need to know if you have any of these conditions: bowel disease, like colitis kidney disease liver disease mononucleosis an unusual or allergic reaction to amoxicillin, penicillin, cephalosporin, other antibiotics, clavulanic acid, other medicines, foods, dyes, or preservatives or trying to get breast-feeding What should I watch for while using this medicine? Tell your doctor or health child caregiver if your symptoms do not improve. Do not treat diarrhea with over the counter products. Contact your doctor if you have diarrhea that lasts more than 2 days or if it is severe and watery. If you have diabetes, you may get a false-positive result for sugar in your urine. Check with your doctor or health child caregiver. control pills may not work properly while you are taking this medicine. Talk to your doctor about using an extra method of control. Oxycodone Hydrochloride, Acetaminophen Oral tablet What is this medicine? ACETAMINOPHEN; OXYCODONE (a set a GLADYS rene fen; ox i KOE done) is a pain reliever. It is used to treat mild to moderate pain. How should I use this medicine? Take this medicine by mouth with a full glass of water. Follow the directions on the prescription label. Take your medicine at regular intervals. Do not take your medicine more often than directed. Talk to your supervisor [employer] regarding the use of this medicine in children. Special care may be needed. Patients over 65 years old may have a stronger reaction and need a smaller dose. What side effects may I notice from receiving this medicine? Side effects that you should report to your doctor or health child caregiver as soon as possible: allergic reactions like skin rash, itching or hives, swelling of the face, lips, or tongue breathing difficulties, wheezing confusion light headedness or fainting spells severe stomach pain yellowing of the skin or the whites of the eyes Side effects that usually do not require medical attention (report to your doctor or health child caregiver if they continue or are bothersome): dizziness drowsiness nausea vomiting What may interact with this medicine? alcohol antihistamines barbiturates like amobarbital, butalbital, butabarbital, methohexital, pentobarbital, phenobarbital, thiopental, and secobarbital benztropine drugs for bladder problems like solifenacin, trospium, oxybutynin, tolterodine, hyoscyamine, and methscopolamine drugs for breathing problems like ipratropium and tiotropium drugs for certain stomach or intestine problems like propantheline, homatropine methylbromide, glycopyrrolate, atropine, belladonna, and dicyclomine general anesthetics like etomidate, ketamine, nitrous oxide, propofol, desflurane, enflurane, halothane, isoflurane, and sevoflurane medicines for depression, anxiety, or psychotic disturbances medicines for sleep muscle relaxants naltrexone narcotic medicines (opiates) for pain phenothiazines like perphenazine, thioridazine, chlorpromazine, mesoridazine, fluphenazine, prochlorperazine, promazine, and trifluoperazine scopolamine tramadol trihexyphenidyl What if I miss a dose? If you miss a dose, take it as soon as you can. If it is almost time for your next dose, take only that dose. Do not take double or extra doses. Where should I keep my medicine? Keep out of the reach of children. This medicine can be abused. Keep your medicine in a safe place to protect it from theft. Do not share this medicine with anyone. Selling or giving away this medicine is dangerous and against the law. Store at room temperature between 20 and 25 degrees C (68 and 77 degrees F). Keep container tightly closed. Protect from light. This medicine may cause accidental overdose and if it is taken by other adults, children, or pets. Flush any unused medicine down the toilet to reduce the chance of harm. Do not use the medicine after the expiration date. What should I tell my health care provider before I take this medicine? They need to know if you have any of these conditions: brain tumor Crohn's disease, inflammatory bowel disease, or ulcerative colitis drink more than 3 alcohol containing drinks per day drug abuse or addiction head injury heart or circulation problems kidney disease or problems going to the bathroom liver disease lung disease, asthma, or breathing problems an unusual or allergic reaction to acetaminophen, oxycodone, other opioid analgesics, other medicines, foods, dyes, or preservatives or trying to get breast-feeding What should I watch for while using this medicine? Tell your doctor or health child caregiver if your pain does not go away, if it gets worse, or if you have new or a different type of pain. You may develop tolerance to the medicine. Tolerance means that you will need a higher dose of the medication for pain relief. Tolerance is normal and is expected if you take this medicine for a long time. Do not suddenly stop taking your medicine because you may develop a severe reaction. Your body becomes used to the medicine. This does NOT mean you are addicted. Addiction is a behavior related to getting and using a drug for a non-medical reason. If you have pain, you have a medical reason to take pain medicine. Your doctor will tell you how much medicine to take. If your doctor wants you to stop the medicine, the dose will be slowly lowered over time to avoid any side effects. You may get drowsy or dizzy. Do not drive, use machinery, or do anything that needs mental alertness until you know how this medicine affects you. Do not stand or sit up quickly, especially if you are an older patient. This reduces the risk of dizzy or fainting spells. Alcohol may interfere with the effect of this medicine. Avoid alcoholic drinks. There are different types of narcotic medicines (opiates) for pain. If you take more than one type at the same time, you may have more side effects. Give your health care provider a list of all medicines you use. Your doctor will tell you how much medicine to take. Do not take more medicine than directed. Call emergency for help if you have problems breathing. The medicine will cause constipation. Try to have a bowel movement at least every 2 to 3 days. If you do not have a bowel movement for 3 days, call your doctor or health child caregiver. Do not take Tylenol (acetaminophen) or medicines that have acetaminophen with this medicine. Too much acetaminophen can be very dangerous. Many nonprescription medicines contain acetaminophen. Always read the labels carefully to avoid taking more acetaminophen. You have been given the following additional information: Dog Bite Laceration, Face (Suture Or Tape) Adjustment Disorder Amoxicillin Trihydrate, Clavulanate Potassium Oral tablet Oxycodone Hydrochloride, Acetaminophen Oral tablet (Electronically signed by Nitesh Somers Dr. 10/13/2016 17:52)
== END 2016-10-12 15:25 | disposition home or self-care (01) ==
LOC: ED SRH 12:51
DX: S01.551A Open bite of lip, initial encounter (principal); F43.24 Adjustment disorder with disturbance of conduct; F10.188 Alcohol abuse with other alcohol-induced disorder; W54.0XXA Bitten by dog, initial encounter; Y93.9 Activity, unspecified; Y99.9 Unspecified external cause status; Y92.009 Unspecified place in unspecified non-institutional (private) residence as the place of occurrence of the external cause